=== PATIENT | male | born 1960 | race Caucasian/White ===

== ENCOUNTER 2023-02-28 02:35 | Inpatient (IN) | payer BC, MEDICARE ==
[2023-02-28] MEDS ORDERED: Morphine 4 MG/ML VIAL ONE (05:01)
[2023-02-28] MEDS ORDERED: Ondansetron PF 4 MG/2 ML Vial ONE (05:01)
[2023-02-28 06:18] LABS: #Eosinphils 0.2 thou/uL (0.0-0.7); #Monocytes 0.8 thou/uL (0.11-0.59); #Neutrophils 5.4 thou/uL (1.40-6.50); %Basophils 0.3 % (0.0-1.0); %Eosinophils 2.2 % (0.0-10.0); %Lymphocytes 26.3 % (21.0-51.0); %Monocytes 8.7 % (0.0-10.0); %Neutrophils 62.2 % (42.0-75.0); Hemoglobin 12.4 g/dL (14.0-18.0); Mean Corpuscular HGB CONC 33.5 g/dL (32.0-36.0); Mean Corpuscular Hemoglobin 33.3 pg (27.0-31.0); Mean Corpuscular Volume 99.5 fl (78.0-98.0); Platelet Count 413 10x3/uL (130-400); RBC Distribution Width 12.2 % (11.5-14.5); Red Blood Cell (RBC) Count 3.72 mill/uL (4.70-6.10); White Blood Cell (WBC) Count 8.7 10x3/uL (4.8-10.8)
[2023-02-28 06:36] LABS: ALT (SGPT) 26 U/L (8-55); AST (SGOT) 20 U/L (5-34); Albumin 3.2 g/dL (3.4-4.8); Alkaline Phosphatase 78 U/L (40-110); Anion Gap 14 mmol/L (10-20); BUN (Urea Nitrogen) 14 mg/dL (8.4-25.7); Bilirubin, Total 0.4 mg/dL (0.2-1.2); Calc. Creatinine Clearance 0 mL/min (70-130); Calcium 8.5 mg/dL (7.8-10.44); Carbon Dioxide 25 mmol/L (23-31); Chloride 101 mmol/L (98-107); Estimated GFR 100; Globulin 3.6 g/dL (2.4-3.5); Glucose 151 mg/dL (80-115); Potassium 4.5 mmol/L (3.5-5.1); Protein, Total 6.8 g/dL (5.8-8.1); Sodium 135 mmol/L (136-145)
[2023-02-28] MEDS ORDERED: Ketorolac Tromethamine 30 MG/ML VIAL ONE (07:34)
[2023-02-28] MEDS ORDERED: Iopamidol 370 76% 100 ML VIAL ONE (08:32)
[2023-02-28] MEDS ORDERED: Senokot S 8.6-50 MG TAB PO PRN (09:25)
[2023-02-28] MEDS ORDERED: Ondansetron PF 4 MG/2 ML Vial IVP PRN (09:25)
[2023-02-28] MEDS ORDERED: Dextrose 50% Abboject 50 ML SYRINGE SLOW IVP PRN (09:28)
[2023-02-28] MEDS ORDERED: Glucagon 1 MG/ML KIT IM PRN (09:28)
[2023-02-28] MEDS ORDERED: Dextrose 5% in Water 1,000 ML IV PRN (09:28)
[2023-02-28] MEDS ORDERED: Piperacillin/Tazobactam 3.375 GM in Sodium Chloride 0.9% 100 ML IVPB SCH ×3 (09:30→14:00)
[2023-02-28] MEDS ORDERED: Piperacillin/Tazobactam 3.375 GM VIAL ONE (12:35)
[2023-02-28] MEDS ORDERED: Sodium Chloride 0.9% 100 ML ONE (12:35)
[2023-02-28] MEDS ORDERED: Acetaminophen 325 MG TAB ONE (12:48)
[2023-02-28] MEDS: Sodium Chloride 0.9% 1,000 ML IV SCH (12:54)
[2023-02-28] MEDS: Acetaminophen 325 MG TAB PO PRN ×3 (12:55→20:11)
[2023-02-28 12:59] VITALS: BMI 28.5
[2023-02-28] MEDS: Piperacillin/Tazobactam 3.375 GM in Sodium Chloride 0.9% 100 ML IVPB SCH (16:48)
[2023-02-28] MEDS: Insulin Regular 300 UNITS/3 ML VIAL SC PRN (16:51)
[2023-02-28 19:43] LABS: Hemoglobin A1c 11.6 % (4.0-6.0)
[2023-02-28] MEDS: Chlorhexidine Gluconate 15 ML UDCUP SSP SCH (20:08)
[2023-03-01] MEDS: Piperacillin/Tazobactam 3.375 GM in Sodium Chloride 0.9% 100 ML IVPB SCH ×3 (00:12→16:06)
[2023-03-01] MEDS: Acetaminophen 325 MG TAB PO PRN ×4 (00:12→19:24)
[2023-03-01] MEDS: Sodium Chloride 0.9% 1,000 ML IV SCH (00:16)
[2023-03-01 04:38] LABS: #Eosinphils 0.3 thou/uL (0.0-0.7); #Monocytes 0.8 thou/uL (0.11-0.59); #Neutrophils 3.1 thou/uL (1.40-6.50); %Basophils 0.4 % (0.0-1.0); %Eosinophils 3.9 % (0.0-10.0); %Lymphocytes 39.2 % (21.0-51.0); %Neutrophils 45.2 % (42.0-75.0); Mean Corpuscular HGB CONC 34.3 g/dL (32.0-36.0); Mean Corpuscular Hemoglobin 33.3 pg (27.0-31.0); Mean Corpuscular Volume 97.2 fl (78.0-98.0); Mean Platelet Volume 9.4 fL (7.4-10.4); Platelet Count 395 10x3/uL (130-400); RBC Distribution Width 11.9 % (11.5-14.5); White Blood Cell (WBC) Count 6.9 10x3/uL (4.8-10.8)
[2023-03-01 05:07] LABS: Anion Gap 9 mmol/L (10-20); BUN (Urea Nitrogen) 8 mg/dL (8.4-25.7); Calc. Creatinine Clearance 136 mL/min (70-130); Calcium 8.7 mg/dL (7.8-10.44); Carbon Dioxide 27 mmol/L (23-31); Chloride 103 mmol/L (98-107); Estimated GFR 102; Glucose 133 mg/dL (80-115); Potassium 4.2 mmol/L (3.5-5.1); Sodium 135 mmol/L (136-145)
[2023-03-01] MEDS: Chlorhexidine Gluconate 15 ML UDCUP SSP SCH ×2 (08:12→22:11)
[2023-03-01] MEDS: Morphine 2 MG/ML VIAL SLOW IVP PRN ×2 (11:58→12:47)
[2023-03-01] MEDS: Morphine 4 MG/ML VIAL SLOW IVP PRN ×2 (14:42→19:24)
[2023-03-01] MEDS: metFORMIN XR 500 MG ER.TAB PO SCH (16:36)
[2023-03-01] MEDS: Insulin Glargine 30 UNITS/0.3 ML VIAL SC SCH (22:11)
[2023-03-01] MEDS: Insulin Regular 300 UNITS/3 ML VIAL SC PRN (22:18)
[2023-03-02] MEDS: Piperacillin/Tazobactam 3.375 GM in Sodium Chloride 0.9% 100 ML IVPB SCH ×3 (00:19→17:44)
[2023-03-02] MEDS: Morphine 4 MG/ML VIAL SLOW IVP PRN ×2 (00:22→13:48)
[2023-03-02 05:40] LABS: #Eosinphils 0.3 thou/uL (0.0-0.7); #Monocytes 0.8 thou/uL (0.11-0.59); #Neutrophils 3.2 thou/uL (1.40-6.50); %Basophils 0.6 % (0.0-1.0); %Eosinophils 3.6 % (0.0-10.0); %Lymphocytes 37.4 % (21.0-51.0); %Neutrophils 46.1 % (42.0-75.0); Hematocrit 37.2 % (42.0-52.0); Hemoglobin 12.7 g/dL (14.0-18.0); Mean Corpuscular HGB CONC 34.1 g/dL (32.0-36.0); Mean Corpuscular Hemoglobin 33.5 pg (27.0-31.0); Mean Corpuscular Volume 98.2 fl (78.0-98.0); Mean Platelet Volume 9.4 fL (7.4-10.4); Platelet Count 383 10x3/uL (130-400); RBC Distribution Width 11.9 % (11.5-14.5); Red Blood Cell (RBC) Count 3.79 mill/uL (4.70-6.10)
[2023-03-02 06:09] LABS: Anion Gap 12 mmol/L (10-20); BUN (Urea Nitrogen) 7 mg/dL (8.4-25.7); Calc. Creatinine Clearance 131 mL/min (70-130); Calcium 9.1 mg/dL (7.8-10.44); Carbon Dioxide 26 mmol/L (23-31); Chloride 101 mmol/L (98-107); Estimated GFR 101; Glucose 163 mg/dL (80-115); Potassium 4.3 mmol/L (3.5-5.1); Sodium 135 mmol/L (136-145)
[2023-03-02] MEDS: Insulin Glargine 30 UNITS/0.3 ML VIAL SC SCH (08:00)
[2023-03-02] MEDS ORDERED: Insulin Glargine 30 UNITS/0.3 ML VIAL SC SCH (09:00)
[2023-03-02] MEDS: Multivitamin W/ Minerals 1 TAB PO SCH (09:53)
[2023-03-02] MEDS: Lisinopril 5 MG TAB PO SCH (09:53)
[2023-03-02] MEDS: Atorvastatin Calcium 10 MG TAB PO SCH (09:53)
[2023-03-02] MEDS: Aspirin 81 mg Enteric Coated Tablet PO SCH (09:53)
[2023-03-02] MEDS: glipiZIDE XL 2.5 mg ER.TAB PO SCH (09:54)
[2023-03-02] MEDS: metFORMIN XR 500 MG ER.TAB PO SCH ×2 (09:54→17:44)
[2023-03-02] MEDS: Chlorhexidine Gluconate 15 ML UDCUP SSP SCH ×2 (09:54→21:53)
[2023-03-02] MEDS: Insulin Regular 300 UNITS/3 ML VIAL SC PRN (13:49)
[2023-03-02] MEDS: Acetaminophen 325 MG TAB PO PRN ×2 (15:44→21:53)
[2023-03-03] MEDS: Piperacillin/Tazobactam 3.375 GM in Sodium Chloride 0.9% 100 ML IVPB SCH ×3 (00:31→17:25)
[2023-03-03] MEDS: Acetaminophen 325 MG TAB PO PRN ×5 (00:58→23:09)
[2023-03-03] MEDS: Morphine 4 MG/ML VIAL SLOW IVP PRN (04:17)
[2023-03-03] MEDS: Lisinopril 5 MG TAB PO SCH (08:27)
[2023-03-03] MEDS: Multivitamin W/ Minerals 1 TAB PO SCH (08:28)
[2023-03-03] MEDS: Atorvastatin Calcium 10 MG TAB PO SCH (08:28)
[2023-03-03] MEDS: Aspirin 81 mg Enteric Coated Tablet PO SCH (08:29)
[2023-03-03] MEDS: metFORMIN XR 500 MG ER.TAB PO SCH ×2 (08:29→17:25)
[2023-03-03] MEDS: glipiZIDE XL 2.5 mg ER.TAB PO SCH (08:29)
[2023-03-03] MEDS: Insulin Glargine 30 UNITS/0.3 ML VIAL SC SCH ×2 (08:29→21:19)
[2023-03-03] MEDS: Chlorhexidine Gluconate 15 ML UDCUP SSP SCH ×2 (08:29→21:19)
[2023-03-03] MEDS ORDERED: Oxymetazoline HCl 0.05% (30 ML BOT) ONE (11:20)
[2023-03-03] MEDS ORDERED: Midazolam HCl 2 mg/2 ml Vial ONE (12:45)
[2023-03-03] MEDS ORDERED: fentaNYL PF 100 MCG/2 ML SYRINGE ONE (12:45)
[2023-03-03] MEDS ORDERED: Lidocaine 1% (PF) 30 ML VIAL ONE (12:51)
[2023-03-03] MEDS ORDERED: SUGAMMADEX SODIUM 200 MG/2 ML VIAL ONE (13:01)
[2023-03-03] MEDS ORDERED: Ondansetron PF 4 MG/2 ML Vial ONE (13:11)
[2023-03-03] MEDS ORDERED: Rocuronium Bromide 10 MG/ML (10ML VIAL) ONE (13:11)
[2023-03-03] MEDS ORDERED: Lidocaine 1% PF 5 ML VIAL ONE (13:11)
[2023-03-03] MEDS ORDERED: PROPOFOL 200 MG/20 ML VIAL ONE (13:11)
[2023-03-03] MEDS ORDERED: fentaNYL 50 mcg/mL 1 mL Vial ONE ×4 (13:50→14:28)
[2023-03-03] MEDS ORDERED: HYDROmorphone 0.5 MG/0.5 ML SYRINGE ONE ×2 (14:21→14:36)
[2023-03-03] MEDS ORDERED: HYDROmorphone 2 MG/ML VIAL SLOW IVP PRN (15:00)
[2023-03-03] MEDS ORDERED: Ondansetron HCl/PF 4 MG/2 ML Vial IVP PRN (15:00)
[2023-03-03] MEDS ORDERED: Promethazine HCl 25 MG/ML VIAL IM/IV PRN (15:00)
[2023-03-04] MEDS: Piperacillin/Tazobactam 3.375 GM in Sodium Chloride 0.9% 100 ML IVPB SCH ×2 (02:06→07:57)
[2023-03-04] MEDS: Acetaminophen 325 MG TAB PO PRN ×2 (04:49→09:03)
[2023-03-04] MEDS: Multivitamin W/ Minerals 1 TAB PO SCH (07:57)
[2023-03-04] MEDS: glipiZIDE XL 2.5 mg ER.TAB PO SCH (07:57)
[2023-03-04] MEDS: Lisinopril 5 MG TAB PO SCH (07:57)
[2023-03-04] MEDS: Atorvastatin Calcium 10 MG TAB PO SCH (07:57)
[2023-03-04] MEDS: metFORMIN XR 500 MG ER.TAB PO SCH (07:57)
[2023-03-04] MEDS: Insulin Glargine 30 UNITS/0.3 ML VIAL SC SCH (07:58)
[2023-03-04] MEDS: Chlorhexidine Gluconate 15 ML UDCUP SSP SCH (07:58)
[2023-03-04] MEDS: Aspirin 81 mg Enteric Coated Tablet PO SCH (07:58)
[2023-03-04 12:04] VITALS: BP 110/72; TEMP 98.1
== END 2023-03-04 12:00 | disposition home or self-care (01) | DRG 145 ==
LOC: ERS 02:35 → ERHOLD 09:20 → T4-B 15:12 → OBSVTOIN 03-01 09:20
PROVIDERS: ADMIT Hospitalist; ATTEND Family Medicine
PROC: 09TV8ZZ Resection of Left Ethmoid Sinus, Via Natural or Artificial Opening Endoscopic (ICD-10-PCS; principal; 2023-03-03)
PROC: 09TL8ZZ Resection of Nasal Turbinate, Via Natural or Artificial Opening Endoscopic (ICD-10-PCS; 2023-03-03)
PROC: 09TU8ZZ Resection of Right Ethmoid Sinus, Via Natural or Artificial Opening Endoscopic (ICD-10-PCS; 2023-03-03)
PROC: 099R8ZZ Drainage of Left Maxillary Sinus, Via Natural or Artificial Opening Endoscopic (ICD-10-PCS; 2023-03-03)
PROC: 099Q8ZZ Drainage of Right Maxillary Sinus, Via Natural or Artificial Opening Endoscopic (ICD-10-PCS; 2023-03-03)
DX: K04.6 Periapical abscess with sinus (principal); J32.0 Chronic maxillary sinusitis; K05.30 Chronic periodontitis, unspecified; E78.5 Hyperlipidemia, unspecified; E11.9 Type 2 diabetes mellitus without complications; I10 Essential (primary) hypertension; F17.220 Nicotine dependence, chewing tobacco, uncomplicated; R09.81 Nasal congestion; J34.3 Hypertrophy of nasal turbinates; J34.89 Other specified disorders of nose and nasal sinuses; Z79.82 Long term (current) use of aspirin; Z79.84 Long term (current) use of oral hypoglycemic drugs; Z79.899 Other long term (current) drug therapy; Z90.49 Acquired absence of other specified parts of digestive tract; Z98.84 Bariatric surgery status
CPT/HCPCS: 36415; 36416; 70487; 80048; 80053; 83036; 83605; 85025; 86140; 87040; 87070; 87102; 87116; 87205; 87206; 96374; 96375; J1170; J1815; J1885; J2001; J2250; J2270; J2272; J2405; J2543; J3010; J3490; J7050; Q9967

== ENCOUNTER 2023-03-09 14:05 | Inpatient (IN) | payer BC, MEDICARE ==
[~2023-03-09 14:05] MED LIST: Iopamidol-370 76% 500 ML MDV (1 ML CHARGE) ONE
[2023-03-09 15:19] LABS: #Eosinphils 0.2 thou/uL (0.0-0.7); #Monocytes 0.6 thou/uL (0.11-0.59); #Neutrophils 4.1 thou/uL (1.40-6.50); %Basophils 0.4 % (0.0-1.0); %Eosinophils 2.6 % (0.0-10.0); %Lymphocytes 28.6 % (21.0-51.0); %Neutrophils 59.3 % (42.0-75.0); Hematocrit 36.5 % (42.0-52.0); Hemoglobin 12.5 g/dL (14.0-18.0); Mean Corpuscular HGB CONC 34.2 g/dL (32.0-36.0); Mean Corpuscular Hemoglobin 33.6 pg (27.0-31.0); Mean Corpuscular Volume 98.1 fl (78.0-98.0); Mean Platelet Volume 9.2 fL (7.4-10.4); Platelet Count 310 10x3/uL (130-400); RBC Distribution Width 12.6 % (11.5-14.5); Red Blood Cell (RBC) Count 3.72 mill/uL (4.70-6.10); White Blood Cell (WBC) Count 6.9 10x3/uL (4.8-10.8)
[2023-03-09 16:28] LABS: Chloride 101 mmol/L (98-107); Potassium 4.1 mmol/L (3.5-5.1)
[2023-03-09 16:29] LABS: Calcium 9.7 mg/dL (7.8-10.44); Sodium 137 mmol/L (136-145)
[2023-03-09 16:31] LABS: Glucose 153 mg/dL (80-115)
[2023-03-09 16:32] LABS: Anion Gap 15 mmol/L (10-20); Carbon Dioxide 25 mmol/L (23-31)
[2023-03-09 16:34] LABS: Calc. Creatinine Clearance 0 mL/min (70-130); Estimated GFR 101
[2023-03-09 16:35] LABS: BUN (Urea Nitrogen) 11 mg/dL (8.4-25.7)
[2023-03-09] MEDS ORDERED: Acetaminophen 500 MG TAB ONE (16:54)
[2023-03-09] MEDS ORDERED: fentaNYL PF 100 MCG/2 ML SYRINGE ONE (19:43)
[2023-03-09] MEDS ORDERED: Midazolam HCl 2 mg/2 ml Vial ONE (19:43)
[2023-03-09] MEDS ORDERED: Oxymetazoline HCl 0.05% (30 ML BOT) ONE (19:44)
[2023-03-09] MEDS ORDERED: Chlorhexidine Gluconate 15 ML UDCUP SSP ONE (19:56)
[2023-03-09] MEDS ORDERED: EPINEPHrine 1 MG/ML VIAL ONE (20:06)
[2023-03-09] MEDS ORDERED: Lidocaine 1% (PF) 30 ML VIAL ONE (20:07)
[2023-03-09] MEDS ORDERED: Bacitracin Zinc Ointment 30 gm TUBE ONE (20:07)
[2023-03-09] MEDS ORDERED: PROPOFOL 200 MG/20 ML VIAL ONE (20:20)
[2023-03-09] MEDS ORDERED: Ondansetron PF 4 MG/2 ML Vial ONE (20:20)
[2023-03-09] MEDS ORDERED: Rocuronium Bromide 10 MG/ML (10ML VIAL) ONE (20:20)
[2023-03-09] MEDS ORDERED: Metoclopramide HCl 10 MG/2 ML VIAL ONE (20:20)
[2023-03-09] MEDS ORDERED: Lidocaine 1% PF 5 ML VIAL ONE (20:20)
[2023-03-09] MEDS ORDERED: SUGAMMADEX SODIUM 200 MG/2 ML VIAL ONE (20:49)
[2023-03-09] MEDS ORDERED: fentaNYL 50 mcg/mL 1 mL Vial ONE (21:51)
[2023-03-09] MEDS ORDERED: HYDROmorphone 0.5 MG/0.5 ML SYRINGE ONE ×2 (22:13→22:36)
[2023-03-09] MEDS ORDERED: Morphine 2 MG/ML VIAL SLOW IVP PRN (22:23)
[2023-03-09] MEDS ORDERED: HYDROcodone/Acetaminophen 5/325 mg Tablet PO PRN (22:24)
[2023-03-09] MEDS ORDERED: Ondansetron ODT 4 MG TAB PO PRN (22:36)
[2023-03-09] MEDS ORDERED: Acetaminophen 325 MG TAB PO PRN (22:36)
[2023-03-09] MEDS ORDERED: Acetaminophen 650 MG Suppository PR PRN (22:36)
[2023-03-09] MEDS ORDERED: Ondansetron PF 4 MG/2 ML Vial IVP PRN (22:36)
[2023-03-09] MEDS ORDERED: Dextrose 50% Abboject 50 ML SYRINGE SLOW IVP PRN (22:40)
[2023-03-09] MEDS ORDERED: Glucagon 1 MG/ML KIT IM PRN (22:40)
[2023-03-09] MEDS ORDERED: Dextrose 5% in Water 1,000 ML IV PRN (22:40)
[2023-03-09] MEDS ORDERED: Sodium Chloride 0.9% 1,000 ML IV SCH (22:45)
[2023-03-09] MEDS ORDERED: Electrolyte Replacement Protocol 1 EACH FS PRN (22:45)
[2023-03-09] MEDS: Ibuprofen 200 MG TAB PO SCH (23:27)
[2023-03-10 02:42] VITALS: BMI 28.3
[2023-03-10] MEDS: Ibuprofen 200 MG TAB PO SCH ×4 (05:56→22:17)
[2023-03-10] MEDS: HumaLOG 300 UNITS/3 ML VIAL SC PRN ×2 (05:59→13:31)
[2023-03-10] MEDS: HYDROcodone/Acetaminophen 5/325 mg Tablet PO PRN ×2 (06:53→12:47)
[2023-03-10 07:03] LABS: #Eosinphils 0.3 thou/uL (0.0-0.7); #Monocytes 0.7 thou/uL (0.11-0.59); #Neutrophils 3.8 thou/uL (1.40-6.50); %Basophils 0.4 % (0.0-1.0); %Monocytes 9.9 % (0.0-10.0); %Neutrophils 55.4 % (42.0-75.0); Hematocrit 32.9 % (42.0-52.0); Hemoglobin 11.1 g/dL (14.0-18.0); Mean Corpuscular HGB CONC 33.7 g/dL (32.0-36.0); Mean Corpuscular Volume 97.9 fl (78.0-98.0); Mean Platelet Volume 9.2 fL (7.4-10.4); Platelet Count 268 10x3/uL (130-400); RBC Distribution Width 12.5 % (11.5-14.5); Red Blood Cell (RBC) Count 3.36 mill/uL (4.70-6.10); White Blood Cell (WBC) Count 6.8 10x3/uL (4.8-10.8)
[2023-03-10 08:08] LABS: Calcium 8.7 mg/dL (7.8-10.44); Chloride 100 mmol/L (98-107); Glucose 250 mg/dL (80-115); Potassium 4.1 mmol/L (3.5-5.1); Sodium 133 mmol/L (136-145)
[2023-03-10 08:10] LABS: Anion Gap 13 mmol/L (10-20); BUN (Urea Nitrogen) 8 mg/dL (8.4-25.7); Calc. Creatinine Clearance 130 mL/min (70-130); Carbon Dioxide 24 mmol/L (23-31); Estimated GFR 101
[2023-03-10] MEDS: Chlorhexidine Gluconate 15 ML UDCUP SSP SCH ×3 (09:15→22:18)
[2023-03-10] MEDS: Lisinopril 5 MG TAB PO SCH (09:15)
[2023-03-10] MEDS: Atorvastatin Calcium 10 MG TAB PO SCH (09:15)
[2023-03-10] MEDS: Nicotine 14 MG PATCH TD SCH (09:15)
[2023-03-10] MEDS: Aspirin 81 mg Enteric Coated Tablet PO SCH (09:15)
[2023-03-10] MEDS ORDERED: Piperacillin/Tazobactam 3.375 GM in Sodium Chloride 0.9% 100 ML IVPB SCH (13:00)
[2023-03-10] MEDS: Micafungin 100 MG in Sodium Chloride 0.9% 100 ML IVPB SCH (15:16)
[2023-03-10] MEDS: Piperacillin/Tazobactam 3.375 GM in Sodium Chloride 0.9% 100 ML IVPB SCH ×2 (17:47→18:56)
[2023-03-10] MEDS ORDERED: VANCOMYCIN IVPB PRN (18:21)
[2023-03-10] MEDS ORDERED: [UNRECOGNIZED DRUG - OTHER] IVPB PRN (18:21)
[2023-03-10] MEDS ORDERED: Vancomycin (BATCH) 2 GM in Premix 1 BAG IVPB SCH (19:15)
[2023-03-10] MEDS ORDERED: Vancomycin 1 GM in Premix 1 BAG IVPB SCH (21:00)
[2023-03-10] MEDS: Cefepime 2 GM in Sodium Chloride 0.9% 100 ML IVPB SCH (22:16)
[2023-03-10] MEDS: metroNIDAZOLE 500 MG TAB PO SCH (22:18)
[2023-03-11] MEDS: HYDROcodone/Acetaminophen 5/325 mg Tablet PO PRN ×2 (02:40→17:09)
[2023-03-11] MEDS: Vancomycin (BATCH) 1.5 GM in Premix 1 BAG IVPB SCH ×2 (04:39→17:07)
[2023-03-11] MEDS: Cefepime 2 GM in Sodium Chloride 0.9% 100 ML IVPB SCH ×3 (06:29→20:31)
[2023-03-11] MEDS: Ibuprofen 200 MG TAB PO SCH ×4 (06:29→23:00)
[2023-03-11] MEDS: Nicotine 14 MG PATCH TD SCH (09:02)
[2023-03-11] MEDS: Lisinopril 5 MG TAB PO SCH (09:02)
[2023-03-11] MEDS: Chlorhexidine Gluconate 15 ML UDCUP SSP SCH ×3 (09:02→20:31)
[2023-03-11] MEDS: Aspirin 81 mg Enteric Coated Tablet PO SCH (09:02)
[2023-03-11] MEDS: Atorvastatin Calcium 10 MG TAB PO SCH (09:02)
[2023-03-11] MEDS: metroNIDAZOLE 500 MG TAB PO SCH ×3 (09:02→20:31)
[2023-03-11] MEDS: HumaLOG 300 UNITS/3 ML VIAL SC PRN (12:28)
[2023-03-11] MEDS: Micafungin 100 MG in Sodium Chloride 0.9% 100 ML IVPB SCH (14:24)
[2023-03-11] MEDS: Polyethylene Glycol 3350 17 GM Packet PO PRN (20:31)
[2023-03-11] MEDS ORDERED: Melatonin 3 MG TAB PO PRN (20:53)
[2023-03-11] MEDS: Melatonin 3 MG TAB PO PRN (23:00)
[2023-03-12] MEDS: Ibuprofen 200 MG TAB PO SCH ×4 (04:55→23:07)
[2023-03-12] MEDS: Cefepime 2 GM in Sodium Chloride 0.9% 100 ML IVPB SCH ×3 (04:56→21:04)
[2023-03-12 05:18] LABS: Hematocrit 30.4 % (42.0-52.0); Hemoglobin 10.6 g/dL (14.0-18.0); Mean Corpuscular HGB CONC 34.9 g/dL (32.0-36.0); Mean Corpuscular Hemoglobin 34.2 pg (27.0-31.0); Mean Corpuscular Volume 98.1 fl (78.0-98.0); Platelet Count 232 10x3/uL (130-400); RBC Distribution Width 12.4 % (11.5-14.5); White Blood Cell (WBC) Count 4.6 10x3/uL (4.8-10.8)
[2023-03-12 05:21] LABS: Delete Auto Diff?? YES; Manual Diff?? YES
[2023-03-12 05:48] LABS: Anion Gap 11 mmol/L (10-20); BUN (Urea Nitrogen) 10 mg/dL (8.4-25.7); Calc. Creatinine Clearance 145 mL/min (70-130); Calcium 8.8 mg/dL (7.8-10.44); Carbon Dioxide 27 mmol/L (23-31); Chloride 102 mmol/L (98-107); Estimated GFR 104; Glucose 152 mg/dL (80-115); Potassium 4.1 mmol/L (3.5-5.1); Sodium 136 mmol/L (136-145)
[2023-03-12 05:50] LABS: Band 2 % (5-11); CellaVision Operator ID LAB.CLH1; Eosinophils 3 % (0-10); Hypochromia SLIGHT = 6-15 cells HPF (0-5); Lymphocytes 36 % (21-51); Monocytes 11 % (0-10); Neutrophil 49 % (42-75); Platelet Adequacy Comment Platelets Normal; Polychromasia SLIGHT = 2-3 cells HPF (0-2); Total Cell Count 101
[2023-03-12 06:26] LABS: Vancomycin, Trough 12.6 ug/mL
[2023-03-12] MEDS: Vancomycin (BATCH) 1.5 GM in Premix 1 BAG IVPB SCH (06:38)
[2023-03-12] MEDS: Aspirin 81 mg Enteric Coated Tablet PO SCH (09:22)
[2023-03-12] MEDS: Chlorhexidine Gluconate 15 ML UDCUP SSP SCH ×3 (09:22→21:04)
[2023-03-12] MEDS: metroNIDAZOLE 500 MG TAB PO SCH ×3 (09:22→21:04)
[2023-03-12] MEDS: Atorvastatin Calcium 10 MG TAB PO SCH (09:22)
[2023-03-12] MEDS: Nicotine 14 MG PATCH TD SCH (09:22)
[2023-03-12] MEDS: Insulin Glargine 30 UNITS/0.3 ML VIAL SC SCH (09:23)
[2023-03-12] MEDS: Lisinopril 5 MG TAB PO SCH (09:32)
[2023-03-12] MEDS: HumaLOG 300 UNITS/3 ML VIAL SC PRN ×2 (12:53→23:10)
[2023-03-12] MEDS: Micafungin 100 MG in Sodium Chloride 0.9% 100 ML IVPB SCH (14:38)
[2023-03-12] MEDS: Vancomycin (BATCH) 1.25 GM in Premix 1 BAG IVPB SCH ×2 (15:52→23:07)
[2023-03-12] MEDS: Polyethylene Glycol 3350 17 GM Packet PO PRN (23:07)
[2023-03-13] MEDS: Cefepime 2 GM in Sodium Chloride 0.9% 100 ML IVPB SCH ×3 (05:11→21:03)
[2023-03-13] MEDS: Ibuprofen 200 MG TAB PO SCH ×4 (05:11→23:22)
[2023-03-13 05:30] LABS: #Eosinphils 0.4 thou/uL (0.0-0.7); #Monocytes 0.7 thou/uL (0.11-0.59); #Neutrophils 2.3 thou/uL (1.40-6.50); %Basophils 0.7 % (0.0-1.0); %Lymphocytes 40.7 % (21.0-51.0); %Monocytes 11.6 % (0.0-10.0); %Neutrophils 39.6 % (42.0-75.0); Hematocrit 28.9 % (42.0-52.0); Mean Corpuscular HGB CONC 34.6 g/dL (32.0-36.0); Mean Corpuscular Hemoglobin 33.6 pg (27.0-31.0); Mean Platelet Volume 9.1 fL (7.4-10.4); Platelet Count 265 10x3/uL (130-400); RBC Distribution Width 12.5 % (11.5-14.5); Red Blood Cell (RBC) Count 2.98 mill/uL (4.70-6.10); White Blood Cell (WBC) Count 5.7 10x3/uL (4.8-10.8)
[2023-03-13 05:55] LABS: Anion Gap 10 mmol/L (10-20); BUN (Urea Nitrogen) 14 mg/dL (8.4-25.7); Calc. Creatinine Clearance 150 mL/min (70-130); Calcium 9.1 mg/dL (7.8-10.44); Carbon Dioxide 27 mmol/L (23-31); Chloride 103 mmol/L (98-107); Estimated GFR 105; Glucose 130 mg/dL (80-115); Sodium 136 mmol/L (136-145)
[2023-03-13 06:02] LABS: Vancomycin, Trough 22.4 ug/mL
[2023-03-13] MEDS: Vancomycin 1 GM in Premix 1 BAG IVPB SCH ×3 (09:22→23:25)
[2023-03-13] MEDS: Nicotine 14 MG PATCH TD SCH (09:23)
[2023-03-13] MEDS: Aspirin 81 mg Enteric Coated Tablet PO SCH (09:23)
[2023-03-13] MEDS: metroNIDAZOLE 500 MG TAB PO SCH ×3 (09:23→21:04)
[2023-03-13] MEDS: Lisinopril 5 MG TAB PO SCH (09:23)
[2023-03-13] MEDS: Atorvastatin Calcium 10 MG TAB PO SCH (09:23)
[2023-03-13] MEDS: Insulin Glargine 30 UNITS/0.3 ML VIAL SC SCH (09:24)
[2023-03-13] MEDS: Chlorhexidine Gluconate 15 ML UDCUP SSP SCH ×3 (09:24→21:04)
[2023-03-13 11:02] LABS: Reference Lab Name LABCORP
[2023-03-13] MEDS: Vancomycin (BATCH) 1.25 GM in Premix 1 BAG IVPB SCH (11:19)
[2023-03-13] MEDS: Micafungin 100 MG in Sodium Chloride 0.9% 100 ML IVPB SCH (14:12)
[2023-03-13] MEDS: HumaLOG 300 UNITS/3 ML VIAL SC PRN (16:32)
[2023-03-13] MEDS: Polyethylene Glycol 3350 17 GM Packet PO PRN (16:38)
[2023-03-13] MEDS ORDERED: Piperacillin/Tazobactam 3.375 GM in Sodium Chloride 0.9% 100 ML IVPB SCH (22:45)
[2023-03-14] MEDS: HumaLOG 300 UNITS/3 ML VIAL SC PRN ×3 (06:03→17:48)
[2023-03-14] MEDS: Ibuprofen 200 MG TAB PO SCH ×4 (06:03→23:24)
[2023-03-14] MEDS: Piperacillin/Tazobactam 3.375 GM in Sodium Chloride 0.9% 100 ML IVPB SCH ×3 (06:04→21:16)
[2023-03-14 07:25] LABS: Hemoglobin 10.2 g/dL (14.0-18.0); Mean Corpuscular Hemoglobin 33.4 pg (27.0-31.0); Mean Corpuscular Volume 98.4 fl (78.0-98.0); Mean Platelet Volume 9.1 fL (7.4-10.4); Platelet Count 284 10x3/uL (130-400); RBC Distribution Width 12.5 % (11.5-14.5); Red Blood Cell (RBC) Count 3.05 mill/uL (4.70-6.10); White Blood Cell (WBC) Count 5.3 10x3/uL (4.8-10.8)
[2023-03-14 07:28] LABS: Delete Auto Diff?? YES; Manual Diff?? YES
[2023-03-14 07:45] LABS: Vancomycin, Trough 21.1 ug/mL
[2023-03-14 07:49] LABS: Anion Gap 10 mmol/L (10-20); BUN (Urea Nitrogen) 11 mg/dL (8.4-25.7); Calc. Creatinine Clearance 130 mL/min (70-130); Calcium 9.2 mg/dL (7.8-10.44); Carbon Dioxide 29 mmol/L (23-31); Chloride 102 mmol/L (98-107); Estimated GFR 101; Glucose 154 mg/dL (80-115); Potassium 4.1 mmol/L (3.5-5.1); Sodium 137 mmol/L (136-145)
[2023-03-14 07:50] LABS: CellaVision Operator ID LAB.NR; Eosinophils 6 % (0-10); Lymphocytes 35 % (21-51); Macrocytosis SLIGHT = 6-15 cells HPF (0-5); Monocytes 9 % (0-10); Neutrophil 50 % (42-75); Platelet Adequacy Comment Platelets Normal; Polychromasia SLIGHT = 2-3 cells HPF (0-2); Total Cell Count 101
[2023-03-14] MEDS ORDERED: Vancomycin HCl 750 MG in Sodium Chloride 0.9% 250 ML 250 ML IVPB SCH ×2 (08:30→16:00)
[2023-03-14] MEDS: Insulin Glargine 30 UNITS/0.3 ML VIAL SC SCH (10:08)
[2023-03-14] MEDS: Chlorhexidine Gluconate 15 ML UDCUP SSP SCH ×3 (10:08→21:17)
[2023-03-14] MEDS: Aspirin 81 mg Enteric Coated Tablet PO SCH (10:12)
[2023-03-14] MEDS: Lisinopril 5 MG TAB PO SCH (10:12)
[2023-03-14] MEDS: Nicotine 14 MG PATCH TD SCH (10:12)
[2023-03-14] MEDS: Atorvastatin Calcium 10 MG TAB PO SCH (10:12)
[2023-03-14] MEDS: Vancomycin 1 GM in Premix 1 BAG IVPB SCH (10:39)
[2023-03-14] MEDS: Micafungin 100 MG in Sodium Chloride 0.9% 100 ML IVPB SCH (14:38)
[2023-03-15] MEDS: Ibuprofen 200 MG TAB PO SCH ×4 (05:31→23:52)
[2023-03-15] MEDS: Piperacillin/Tazobactam 3.375 GM in Sodium Chloride 0.9% 100 ML IVPB SCH ×2 (05:31→14:01)
[2023-03-15 06:36] LABS: #Basophils 0.1 thou/uL (0.0-0.2); #Eosinphils 0.4 thou/uL (0.0-0.7); #Monocytes 0.8 thou/uL (0.11-0.59); #Neutrophils 2.9 thou/uL (1.40-6.50); %Eosinophils 5.6 % (0.0-10.0); %Lymphocytes 41.2 % (21.0-51.0); %Monocytes 11.1 % (0.0-10.0); %Neutrophils 40.7 % (42.0-75.0); Hematocrit 28.3 % (42.0-52.0); Hemoglobin 9.7 g/dL (14.0-18.0); Mean Corpuscular HGB CONC 34.3 g/dL (32.0-36.0); Mean Corpuscular Hemoglobin 33.3 pg (27.0-31.0); Mean Corpuscular Volume 97.3 fl (78.0-98.0); Mean Platelet Volume 9.3 fL (7.4-10.4); Platelet Count 327 10x3/uL (130-400); RBC Distribution Width 12.6 % (11.5-14.5); Red Blood Cell (RBC) Count 2.91 mill/uL (4.70-6.10); White Blood Cell (WBC) Count 7.1 10x3/uL (4.8-10.8)
[2023-03-15 07:12] LABS: Anion Gap 11 mmol/L (10-20); BUN (Urea Nitrogen) 14 mg/dL (8.4-25.7); Calc. Creatinine Clearance 145 mL/min (70-130); Calcium 9.2 mg/dL (7.8-10.44); Carbon Dioxide 27 mmol/L (23-31); Chloride 102 mmol/L (98-107); Estimated GFR 104; Glucose 136 mg/dL (80-115); Potassium 4.1 mmol/L (3.5-5.1); Sodium 136 mmol/L (136-145)
[2023-03-15] MEDS: Nicotine 14 MG PATCH TD SCH (08:33)
[2023-03-15] MEDS: Insulin Glargine 30 UNITS/0.3 ML VIAL SC SCH (08:34)
[2023-03-15] MEDS: Aspirin 81 mg Enteric Coated Tablet PO SCH (08:34)
[2023-03-15] MEDS: Atorvastatin Calcium 10 MG TAB PO SCH (08:34)
[2023-03-15] MEDS: Chlorhexidine Gluconate 15 ML UDCUP SSP SCH ×3 (08:34→20:54)
[2023-03-15] MEDS: Lisinopril 5 MG TAB PO SCH (08:34)
[2023-03-15] MEDS: Polyethylene Glycol 3350 17 GM Packet PO PRN (08:50)
[2023-03-15] MEDS: HumaLOG 300 UNITS/3 ML VIAL SC PRN ×2 (12:35→17:58)
[2023-03-15] MEDS: Micafungin 100 MG in Sodium Chloride 0.9% 100 ML IVPB SCH (14:00)
[2023-03-15] MEDS ORDERED: Meropenem 2 GM in Sodium Chloride 0.9% 100 ML IVPB SCH (16:43)
[2023-03-15] MEDS ORDERED: Meropenem 1 GM in Sodium Chloride 0.9% 100 ML IVPB SCH (17:00)
[2023-03-16] MEDS: Meropenem 1 GM in Sodium Chloride 0.9% 100 ML IVPB SCH ×3 (03:39→22:01)
[2023-03-16 04:04] LABS: #Basophils 0.1 thou/uL (0.0-0.2); #Eosinphils 0.4 thou/uL (0.0-0.7); #Monocytes 0.7 thou/uL (0.11-0.59); #Neutrophils 2.7 thou/uL (1.40-6.50); %Basophils 0.7 % (0.0-1.0); %Eosinophils 5.8 % (0.0-10.0); %Lymphocytes 42.2 % (21.0-51.0); %Monocytes 10.8 % (0.0-10.0); %Neutrophils 40.1 % (42.0-75.0); Hematocrit 29.5 % (42.0-52.0); Hemoglobin 10.2 g/dL (14.0-18.0); Mean Corpuscular HGB CONC 34.6 g/dL (32.0-36.0); Mean Corpuscular Hemoglobin 33.8 pg (27.0-31.0); Mean Corpuscular Volume 97.7 fl (78.0-98.0); Platelet Count 297 10x3/uL (130-400); RBC Distribution Width 12.9 % (11.5-14.5); Red Blood Cell (RBC) Count 3.02 mill/uL (4.70-6.10); White Blood Cell (WBC) Count 6.7 10x3/uL (4.8-10.8)
[2023-03-16 04:23] LABS: Anion Gap 10 mmol/L (10-20); BUN (Urea Nitrogen) 14 mg/dL (8.4-25.7); Calc. Creatinine Clearance 130 mL/min (70-130); Calcium 8.7 mg/dL (7.8-10.44); Carbon Dioxide 27 mmol/L (23-31); Chloride 103 mmol/L (98-107); Estimated GFR 101; Glucose 173 mg/dL (80-115); Potassium 4.1 mmol/L (3.5-5.1); Sodium 136 mmol/L (136-145)
[2023-03-16] MEDS: Ibuprofen 200 MG TAB PO SCH ×3 (05:51→18:35)
[2023-03-16] MEDS: Lisinopril 5 MG TAB PO SCH (09:10)
[2023-03-16] MEDS: Atorvastatin Calcium 10 MG TAB PO SCH (09:10)
[2023-03-16] MEDS: Aspirin 81 mg Enteric Coated Tablet PO SCH (09:10)
[2023-03-16] MEDS: Nicotine 14 MG PATCH TD SCH (09:11)
[2023-03-16] MEDS: Chlorhexidine Gluconate 15 ML UDCUP SSP SCH ×3 (09:11→21:30)
[2023-03-16] MEDS: Insulin Glargine 30 UNITS/0.3 ML VIAL SC SCH (09:11)
[2023-03-16] MEDS: HumaLOG 300 UNITS/3 ML VIAL SC PRN ×2 (12:02→18:51)
[2023-03-16] MEDS: Micafungin 100 MG in Sodium Chloride 0.9% 100 ML IVPB SCH (15:44)
[2023-03-17] MEDS: Ibuprofen 200 MG TAB PO SCH ×5 (01:02→23:01)
[2023-03-17] MEDS: Meropenem 1 GM in Sodium Chloride 0.9% 100 ML IVPB SCH ×3 (05:31→23:01)
[2023-03-17] MEDS: HumaLOG 300 UNITS/3 ML VIAL SC PRN (05:46)
[2023-03-17] MEDS: Aspirin 81 mg Enteric Coated Tablet PO SCH (09:36)
[2023-03-17] MEDS: Nicotine 14 MG PATCH TD SCH (09:36)
[2023-03-17] MEDS: Lisinopril 5 MG TAB PO SCH (09:36)
[2023-03-17] MEDS: Chlorhexidine Gluconate 15 ML UDCUP SSP SCH ×3 (09:36→19:44)
[2023-03-17] MEDS: Atorvastatin Calcium 10 MG TAB PO SCH (09:36)
[2023-03-17] MEDS: Insulin Glargine 30 UNITS/0.3 ML VIAL SC SCH (09:37)
[2023-03-17] MEDS: Micafungin 100 MG in Sodium Chloride 0.9% 100 ML IVPB SCH (14:33)
[2023-03-18] MEDS: Ibuprofen 200 MG TAB PO SCH ×4 (05:26→23:23)
[2023-03-18] MEDS: Meropenem 1 GM in Sodium Chloride 0.9% 100 ML IVPB SCH ×3 (05:27→23:23)
[2023-03-18 05:47] LABS: #Eosinphils 0.3 thou/uL (0.0-0.7); #Monocytes 0.7 thou/uL (0.11-0.59); #Neutrophils 2.7 thou/uL (1.40-6.50); %Basophils 0.5 % (0.0-1.0); %Lymphocytes 39.8 % (21.0-51.0); %Monocytes 11.6 % (0.0-10.0); %Neutrophils 42.3 % (42.0-75.0); Hematocrit 31.9 % (42.0-52.0); Mean Corpuscular HGB CONC 34.5 g/dL (32.0-36.0); Mean Corpuscular Hemoglobin 34.1 pg (27.0-31.0); Mean Corpuscular Volume 98.8 fl (78.0-98.0); Platelet Count 328 10x3/uL (130-400); RBC Distribution Width 12.9 % (11.5-14.5); Red Blood Cell (RBC) Count 3.23 mill/uL (4.70-6.10); White Blood Cell (WBC) Count 6.4 10x3/uL (4.8-10.8)
[2023-03-18 06:07] LABS: Anion Gap 11 mmol/L (10-20); BUN (Urea Nitrogen) 15 mg/dL (8.4-25.7); CRP (Inflammatory) Less than 0.50 mg/dL (= or < 0.5); Calc. Creatinine Clearance 137 mL/min (70-130); Calcium 8.7 mg/dL (7.8-10.44); Carbon Dioxide 27 mmol/L (23-31); Chloride 102 mmol/L (98-107); Estimated GFR 102; Glucose 146 mg/dL (80-115); Potassium 4.4 mmol/L (3.5-5.1); Sodium 136 mmol/L (136-145)
[2023-03-18] MEDS: Insulin Glargine 30 UNITS/0.3 ML VIAL SC SCH (09:36)
[2023-03-18] MEDS: Chlorhexidine Gluconate 15 ML UDCUP SSP SCH ×3 (09:36→20:44)
[2023-03-18] MEDS: Atorvastatin Calcium 10 MG TAB PO SCH (09:36)
[2023-03-18] MEDS: Lisinopril 5 MG TAB PO SCH (09:36)
[2023-03-18] MEDS: Aspirin 81 mg Enteric Coated Tablet PO SCH (09:41)
[2023-03-18] MEDS: Nicotine 14 MG PATCH TD SCH (11:43)
[2023-03-18] MEDS: Micafungin 100 MG in Sodium Chloride 0.9% 100 ML IVPB SCH (13:40)
[2023-03-18] MEDS: HumaLOG 300 UNITS/3 ML VIAL SC PRN (18:16)
[2023-03-18 18:47] LABS: HIV (1/2) Antibody/Antigen Non-Reactive (NonReactive); HIV 1/2 INDEX 0.13 S/CO (<1.00)
[2023-03-19] MEDS: Ibuprofen 200 MG TAB PO SCH ×4 (05:49→23:06)
[2023-03-19] MEDS: Meropenem 1 GM in Sodium Chloride 0.9% 100 ML IVPB SCH ×3 (05:54→23:08)
[2023-03-19 06:10] LABS: #Basophils 0.1 thou/uL (0.0-0.2); #Eosinphils 0.3 thou/uL (0.0-0.7); #Monocytes 0.8 thou/uL (0.11-0.59); #Neutrophils 2.8 thou/uL (1.40-6.50); %Basophils 0.7 % (0.0-1.0); %Eosinophils 4.5 % (0.0-10.0); %Monocytes 11.6 % (0.0-10.0); %Neutrophils 38.6 % (42.0-75.0); Hemoglobin 11.3 g/dL (14.0-18.0); Mean Corpuscular HGB CONC 34.2 g/dL (32.0-36.0); Mean Corpuscular Hemoglobin 33.8 pg (27.0-31.0); Mean Corpuscular Volume 98.8 fl (78.0-98.0); Mean Platelet Volume 8.9 fL (7.4-10.4); Platelet Count 322 10x3/uL (130-400); RBC Distribution Width 13.2 % (11.5-14.5); Red Blood Cell (RBC) Count 3.34 mill/uL (4.70-6.10); White Blood Cell (WBC) Count 7.3 10x3/uL (4.8-10.8)
[2023-03-19 06:34] LABS: Anion Gap 16 mmol/L (10-20); BUN (Urea Nitrogen) 15 mg/dL (8.4-25.7); Calc. Creatinine Clearance 135 mL/min (70-130); Carbon Dioxide 24 mmol/L (23-31); Chloride 102 mmol/L (98-107); Estimated GFR 102; Glucose 174 mg/dL (80-115); Potassium 4.5 mmol/L (3.5-5.1); Sodium 137 mmol/L (136-145)
[2023-03-19] MEDS: Chlorhexidine Gluconate 15 ML UDCUP SSP SCH ×3 (09:03→20:42)
[2023-03-19] MEDS: Nicotine 14 MG PATCH TD SCH (09:03)
[2023-03-19] MEDS: Insulin Glargine 30 UNITS/0.3 ML VIAL SC SCH (09:03)
[2023-03-19] MEDS: Aspirin 81 mg Enteric Coated Tablet PO SCH (09:03)
[2023-03-19] MEDS: Atorvastatin Calcium 10 MG TAB PO SCH (09:03)
[2023-03-19] MEDS: Lisinopril 5 MG TAB PO SCH (09:03)
[2023-03-19] MEDS: Micafungin 100 MG in Sodium Chloride 0.9% 100 ML IVPB SCH (13:17)
[2023-03-20] MEDS: Ibuprofen 200 MG TAB PO SCH ×4 (05:21→23:12)
[2023-03-20] MEDS: Meropenem 1 GM in Sodium Chloride 0.9% 100 ML IVPB SCH ×3 (05:22→22:06)
[2023-03-20 05:37] LABS: #Eosinphils 0.3 thou/uL (0.0-0.7); #Monocytes 0.7 thou/uL (0.11-0.59); #Neutrophils 2.3 thou/uL (1.40-6.50); %Basophils 0.7 % (0.0-1.0); %Eosinophils 5.9 % (0.0-10.0); %Monocytes 12.1 % (0.0-10.0); %Neutrophils 39.9 % (42.0-75.0); Hematocrit 32.5 % (42.0-52.0); Hemoglobin 11.3 g/dL (14.0-18.0); Mean Corpuscular HGB CONC 34.8 g/dL (32.0-36.0); Mean Corpuscular Volume 97.9 fl (78.0-98.0); Mean Platelet Volume 9.1 fL (7.4-10.4); Platelet Count 322 10x3/uL (130-400); RBC Distribution Width 13.2 % (11.5-14.5); Red Blood Cell (RBC) Count 3.32 mill/uL (4.70-6.10); White Blood Cell (WBC) Count 5.6 10x3/uL (4.8-10.8)
[2023-03-20 06:02] LABS: Anion Gap 10 mmol/L (10-20); BUN (Urea Nitrogen) 14 mg/dL (8.4-25.7); Calc. Creatinine Clearance 135 mL/min (70-130); Calcium 8.9 mg/dL (7.8-10.44); Carbon Dioxide 28 mmol/L (23-31); Chloride 103 mmol/L (98-107); Estimated GFR 102; Glucose 142 mg/dL (80-115); Potassium 4.3 mmol/L (3.5-5.1); Sodium 137 mmol/L (136-145)
[2023-03-20] MEDS: Aspirin 81 mg Enteric Coated Tablet PO SCH (10:03)
[2023-03-20] MEDS: Lisinopril 5 MG TAB PO SCH (10:03)
[2023-03-20] MEDS: Chlorhexidine Gluconate 15 ML UDCUP SSP SCH ×3 (10:03→20:25)
[2023-03-20] MEDS: Nicotine 14 MG PATCH TD SCH (10:04)
[2023-03-20] MEDS: Insulin Glargine 30 UNITS/0.3 ML VIAL SC SCH (10:43)
[2023-03-20] MEDS: Atorvastatin Calcium 10 MG TAB PO SCH (13:04)
[2023-03-20] MEDS: Micafungin 100 MG in Sodium Chloride 0.9% 100 ML IVPB SCH (13:35)
[2023-03-20] MEDS: HumaLOG 300 UNITS/3 ML VIAL SC PRN (22:07)
[2023-03-21] MEDS: Ibuprofen 200 MG TAB PO SCH ×3 (05:10→17:40)
[2023-03-21] MEDS: Meropenem 1 GM in Sodium Chloride 0.9% 100 ML IVPB SCH ×3 (05:15→21:27)
[2023-03-21 05:39] LABS: #Eosinphils 0.3 thou/uL (0.0-0.7); #Monocytes 0.6 thou/uL (0.11-0.59); #Neutrophils 2.4 thou/uL (1.40-6.50); %Basophils 0.7 % (0.0-1.0); %Eosinophils 5.7 % (0.0-10.0); %Lymphocytes 41.8 % (21.0-51.0); %Monocytes 10.6 % (0.0-10.0); %Neutrophils 40.9 % (42.0-75.0); Hematocrit 33.4 % (42.0-52.0); Hemoglobin 11.7 g/dL (14.0-18.0); Mean Corpuscular Hemoglobin 34.6 pg (27.0-31.0); Mean Corpuscular Volume 98.8 fl (78.0-98.0); Mean Platelet Volume 9.2 fL (7.4-10.4); Platelet Count 310 10x3/uL (130-400); RBC Distribution Width 13.1 % (11.5-14.5); Red Blood Cell (RBC) Count 3.38 mill/uL (4.70-6.10); White Blood Cell (WBC) Count 5.9 10x3/uL (4.8-10.8)
[2023-03-21 06:13] LABS: Anion Gap 12 mmol/L (10-20); BUN (Urea Nitrogen) 19 mg/dL (8.4-25.7); Calc. Creatinine Clearance 133 mL/min (70-130); Calcium 8.9 mg/dL (7.8-10.44); Carbon Dioxide 27 mmol/L (23-31); Chloride 102 mmol/L (98-107); Estimated GFR 101; Glucose 149 mg/dL (80-115); Potassium 4.5 mmol/L (3.5-5.1); Sodium 136 mmol/L (136-145)
[2023-03-21] MEDS: Chlorhexidine Gluconate 15 ML UDCUP SSP SCH ×3 (08:17→21:27)
[2023-03-21] MEDS: Lisinopril 5 MG TAB PO SCH (08:17)
[2023-03-21] MEDS: Insulin Glargine 30 UNITS/0.3 ML VIAL SC SCH (08:18)
[2023-03-21] MEDS: Atorvastatin Calcium 10 MG TAB PO SCH (08:18)
[2023-03-21] MEDS: Aspirin 81 mg Enteric Coated Tablet PO SCH (08:18)
[2023-03-21] MEDS: Nicotine 14 MG PATCH TD SCH (08:19)
[2023-03-21] MEDS: HumaLOG 300 UNITS/3 ML VIAL SC PRN ×2 (13:18→22:41)
[2023-03-21] MEDS: Micafungin 100 MG in Sodium Chloride 0.9% 100 ML IVPB SCH (13:19)
[2023-03-21] MEDS: Melatonin 3 MG TAB PO PRN (22:41)
[2023-03-22] MEDS: Ibuprofen 200 MG TAB PO SCH ×5 (00:27→23:17)
[2023-03-22] MEDS: Meropenem 1 GM in Sodium Chloride 0.9% 100 ML IVPB SCH ×3 (05:22→22:10)
[2023-03-22 05:55] LABS: Hematocrit 32.7 % (42.0-52.0); Hemoglobin 11.3 g/dL (14.0-18.0); Mean Corpuscular HGB CONC 34.6 g/dL (32.0-36.0); Mean Corpuscular Hemoglobin 33.8 pg (27.0-31.0); Mean Corpuscular Volume 97.9 fl (78.0-98.0); Mean Platelet Volume 10.4 fL (7.4-10.4); Platelet Count 214 10x3/uL (130-400); Red Blood Cell (RBC) Count 3.34 mill/uL (4.70-6.10); White Blood Cell (WBC) Count 5.7 10x3/uL (4.8-10.8)
[2023-03-22 06:16] LABS: Delete Auto Diff?? YES; Manual Diff?? YES
[2023-03-22 06:45] LABS: CellaVision Operator ID lab.abc; Eosinophils 3 % (0-10); Lymphocytes 32 % (21-51); Monocytes 9 % (0-10); Neutrophil 48 % (42-75); Platelet Adequacy Comment Platelets Normal; RBC Morphology Within Normal Limits; Reactive Lymphocytes 7 % (0-10); Total Cell Count 101
[2023-03-22 07:08] LABS: Anion Gap 12 mmol/L (10-20); BUN (Urea Nitrogen) 17 mg/dL (8.4-25.7); Calc. Creatinine Clearance 131 mL/min (70-130); Calcium 8.8 mg/dL (7.8-10.44); Carbon Dioxide 27 mmol/L (23-31); Chloride 102 mmol/L (98-107); Estimated GFR 101; Glucose 145 mg/dL (80-115); Potassium 4.3 mmol/L (3.5-5.1); Sodium 137 mmol/L (136-145)
[2023-03-22] MEDS: Lisinopril 5 MG TAB PO SCH (09:54)
[2023-03-22] MEDS: Polyethylene Glycol 3350 17 GM Packet PO PRN (09:54)
[2023-03-22] MEDS: Insulin Glargine 30 UNITS/0.3 ML VIAL SC SCH (09:54)
[2023-03-22] MEDS: Aspirin 81 mg Enteric Coated Tablet PO SCH (09:54)
[2023-03-22] MEDS: Nicotine 14 MG PATCH TD SCH (09:55)
[2023-03-22] MEDS: Atorvastatin Calcium 10 MG TAB PO SCH (09:55)
[2023-03-22] MEDS: Chlorhexidine Gluconate 15 ML UDCUP SSP SCH ×3 (09:55→22:00)
[2023-03-22] MEDS: Micafungin 100 MG in Sodium Chloride 0.9% 100 ML IVPB SCH (13:07)
[2023-03-22] MEDS: HumaLOG 300 UNITS/3 ML VIAL SC PRN (23:16)
[2023-03-23] MEDS: Meropenem 1 GM in Sodium Chloride 0.9% 100 ML IVPB SCH ×3 (06:03→21:46)
[2023-03-23] MEDS: Ibuprofen 200 MG TAB PO SCH ×4 (06:03→23:10)
[2023-03-23 07:11] LABS: Anion Gap 10 mmol/L (10-20); BUN (Urea Nitrogen) 16 mg/dL (8.4-25.7); Calc. Creatinine Clearance 139 mL/min (70-130); Calcium 8.7 mg/dL (7.8-10.44); Carbon Dioxide 28 mmol/L (23-31); Chloride 101 mmol/L (98-107); Estimated GFR 103; Glucose 132 mg/dL (80-115); Potassium 4.4 mmol/L (3.5-5.1); Sodium 135 mmol/L (136-145)
[2023-03-23 07:43] LABS: #Basophils 0.1 thou/uL (0.0-0.2); #Eosinphils 0.3 thou/uL (0.0-0.7); #Monocytes 0.7 thou/uL (0.11-0.59); #Neutrophils 2.1 thou/uL (1.40-6.50); %Basophils 0.9 % (0.0-1.0); %Lymphocytes 44.1 % (21.0-51.0); %Monocytes 11.5 % (0.0-10.0); %Neutrophils 37.3 % (42.0-75.0); Hematocrit 33.9 % (42.0-52.0); Hemoglobin 11.8 g/dL (14.0-18.0); Mean Corpuscular HGB CONC 34.8 g/dL (32.0-36.0); Mean Corpuscular Hemoglobin 34.4 pg (27.0-31.0); Mean Corpuscular Volume 98.8 fl (78.0-98.0); Mean Platelet Volume 9.6 fL (7.4-10.4); Platelet Count 321 10x3/uL (130-400); RBC Distribution Width 13.2 % (11.5-14.5); Red Blood Cell (RBC) Count 3.43 mill/uL (4.70-6.10); White Blood Cell (WBC) Count 5.7 10x3/uL (4.8-10.8)
[2023-03-23] MEDS: Chlorhexidine Gluconate 15 ML UDCUP SSP SCH ×3 (09:29→20:56)
[2023-03-23] MEDS: Lisinopril 5 MG TAB PO SCH (09:29)
[2023-03-23] MEDS: Aspirin 81 mg Enteric Coated Tablet PO SCH (09:29)
[2023-03-23] MEDS: Atorvastatin Calcium 10 MG TAB PO SCH (09:29)
[2023-03-23] MEDS: Nicotine 14 MG PATCH TD SCH (09:32)
[2023-03-23] MEDS: Insulin Glargine 30 UNITS/0.3 ML VIAL SC SCH (09:32)
[2023-03-23] MEDS ORDERED: Admixture Fee 1 EACH in Dextrose 5% in Water 10 ML FS SCH (13:59)
[2023-03-23] MEDS ORDERED: AMBISOME IVPB SCH (14:00)
[2023-03-23] MEDS ORDERED: STERILE WATER IVPB SCH (14:00)
[2023-03-23] MEDS ORDERED: DEXTROSE IVPB SCH (14:00)
[2023-03-23] MEDS ORDERED: ADMIXTURE FEE IVPB SCH (14:00)
[2023-03-23] MEDS ORDERED: [UNRECOGNIZED DRUG - OTHER] IVPB SCH (14:00)
[2023-03-23] MEDS: Admixture Fee 1 EACH in Dextrose 5% in Water 10 ML FS SCH ×2 (18:30→20:55)
[2023-03-23] MEDS: STERILE WATER IVPB SCH (18:32)
[2023-03-23] MEDS: DEXTROSE IVPB SCH (18:32)
[2023-03-23] MEDS: ADMIXTURE FEE IVPB SCH (18:32)
[2023-03-23] MEDS: AMBISOME IVPB SCH (18:32)
[2023-03-23] MEDS: [UNRECOGNIZED DRUG - OTHER] IVPB SCH (18:32)
[2023-03-23] MEDS: HumaLOG 300 UNITS/3 ML VIAL SC PRN (22:45)
[2023-03-24] MEDS: Ibuprofen 200 MG TAB PO SCH ×3 (06:08→17:37)
[2023-03-24] MEDS: Meropenem 1 GM in Sodium Chloride 0.9% 100 ML IVPB SCH ×3 (06:09→20:08)
[2023-03-24] MEDS: HumaLOG 300 UNITS/3 ML VIAL SC PRN (10:04)
[2023-03-24] MEDS: Chlorhexidine Gluconate 15 ML UDCUP SSP SCH ×3 (10:05→20:08)
[2023-03-24] MEDS: Insulin Glargine 30 UNITS/0.3 ML VIAL SC SCH (10:05)
[2023-03-24] MEDS: Aspirin 81 mg Enteric Coated Tablet PO SCH (10:05)
[2023-03-24] MEDS: Atorvastatin Calcium 10 MG TAB PO SCH (10:06)
[2023-03-24] MEDS: Lisinopril 5 MG TAB PO SCH (10:06)
[2023-03-24] MEDS: Nicotine 14 MG PATCH TD SCH (10:07)
[2023-03-24 10:38] LABS: #Basophils 0.1 thou/uL (0.0-0.2); #Eosinphils 0.4 thou/uL (0.0-0.7); #Monocytes 0.7 thou/uL (0.11-0.59); #Neutrophils 2.2 thou/uL (1.40-6.50); %Eosinophils 7.4 % (0.0-10.0); %Monocytes 12.9 % (0.0-10.0); %Neutrophils 43.9 % (42.0-75.0); Hematocrit 35.6 % (42.0-52.0); Hemoglobin 12.3 g/dL (14.0-18.0); Mean Corpuscular HGB CONC 34.6 g/dL (32.0-36.0); Mean Corpuscular Volume 98.3 fl (78.0-98.0); Mean Platelet Volume 9.5 fL (7.4-10.4); Platelet Count 320 10x3/uL (130-400); Red Blood Cell (RBC) Count 3.62 mill/uL (4.70-6.10)
[2023-03-24 10:55] LABS: Anion Gap 13 mmol/L (10-20); BUN (Urea Nitrogen) 20 mg/dL (8.4-25.7); Calc. Creatinine Clearance 106 mL/min (70-130); Calcium 9.3 mg/dL (7.8-10.44); Carbon Dioxide 27 mmol/L (23-31); Chloride 101 mmol/L (98-107); Estimated GFR 95; Glucose 197 mg/dL (80-115); Potassium 4.6 mmol/L (3.5-5.1); Sodium 136 mmol/L (136-145)
[2023-03-24] MEDS ORDERED: Magnesium 2 GM/50 ML(in water) 2 GM in Premix 1 BAG IVPB SCH (14:00)
[2023-03-24] MEDS: Admixture Fee 1 EACH in Dextrose 5% in Water 10 ML FS SCH ×2 (17:38→20:08)
[2023-03-24] MEDS: STERILE WATER IVPB SCH (17:39)
[2023-03-24] MEDS: [UNRECOGNIZED DRUG - OTHER] IVPB SCH (17:39)
[2023-03-24] MEDS: AMBISOME IVPB SCH (17:39)
[2023-03-24] MEDS: DEXTROSE IVPB SCH (17:39)
[2023-03-24] MEDS: ADMIXTURE FEE IVPB SCH (17:39)
[2023-03-25] MEDS: Ibuprofen 200 MG TAB PO SCH ×5 (00:35→23:50)
[2023-03-25] MEDS: Meropenem 1 GM in Sodium Chloride 0.9% 100 ML IVPB SCH ×3 (06:01→23:10)
[2023-03-25 06:14] LABS: #Eosinphils 0.4 thou/uL (0.0-0.7); #Monocytes 0.8 thou/uL (0.11-0.59); #Neutrophils 2.2 thou/uL (1.40-6.50); %Basophils 0.7 % (0.0-1.0); %Eosinophils 7.3 % (0.0-10.0); %Lymphocytes 38.9 % (21.0-51.0); %Monocytes 13.9 % (0.0-10.0); %Neutrophils 38.8 % (42.0-75.0); Hematocrit 36.7 % (42.0-52.0); Hemoglobin 12.7 g/dL (14.0-18.0); Mean Corpuscular HGB CONC 34.6 g/dL (32.0-36.0); Mean Corpuscular Hemoglobin 33.9 pg (27.0-31.0); Mean Corpuscular Volume 97.9 fl (78.0-98.0); Mean Platelet Volume 9.2 fL (7.4-10.4); Platelet Count 240 10x3/uL (130-400); RBC Distribution Width 12.6 % (11.5-14.5); Red Blood Cell (RBC) Count 3.75 mill/uL (4.70-6.10); White Blood Cell (WBC) Count 5.6 10x3/uL (4.8-10.8)
[2023-03-25 06:48] LABS: Anion Gap 13 mmol/L (10-20); BUN (Urea Nitrogen) 27 mg/dL (8.4-25.7); Calc. Creatinine Clearance 92 mL/min (70-130); Calcium 8.9 mg/dL (7.8-10.44); Carbon Dioxide 27 mmol/L (23-31); Chloride 101 mmol/L (98-107); Estimated GFR 80; Glucose 129 mg/dL (80-115); Potassium 4.3 mmol/L (3.5-5.1); Sodium 137 mmol/L (136-145)
[2023-03-25 07:04] LABS: Magnesium 2.3 mg/dL (1.6-2.6)
[2023-03-25] MEDS: Chlorhexidine Gluconate 15 ML UDCUP SSP SCH ×3 (08:36→21:18)
[2023-03-25] MEDS: Aspirin 81 mg Enteric Coated Tablet PO SCH (08:37)
[2023-03-25] MEDS: Atorvastatin Calcium 10 MG TAB PO SCH (08:37)
[2023-03-25] MEDS: Lisinopril 5 MG TAB PO SCH (08:37)
[2023-03-25] MEDS: Nicotine 14 MG PATCH TD SCH (08:37)
[2023-03-25] MEDS: Insulin Glargine 30 UNITS/0.3 ML VIAL SC SCH (08:37)
[2023-03-25] MEDS: metFORMIN 500 MG TAB PO SCH ×2 (09:16→21:18)
[2023-03-25] MEDS: Multivitamin W/ Minerals 1 TAB PO SCH (09:17)
[2023-03-25] MEDS: STERILE WATER IVPB SCH (17:33)
[2023-03-25] MEDS: [UNRECOGNIZED DRUG - OTHER] IVPB SCH (17:33)
[2023-03-25] MEDS: AMBISOME IVPB SCH (17:33)
[2023-03-25] MEDS: ADMIXTURE FEE IVPB SCH (17:33)
[2023-03-25] MEDS: DEXTROSE IVPB SCH (17:33)
[2023-03-25] MEDS: Admixture Fee 1 EACH in Dextrose 5% in Water 10 ML FS SCH ×2 (17:40→20:20)
[2023-03-25] MEDS: Melatonin 3 MG TAB PO PRN (21:18)
[2023-03-25] MEDS: Acetaminophen 500 MG TAB PO PRN (21:22)
[2023-03-26] MEDS: Meropenem 1 GM in Sodium Chloride 0.9% 100 ML IVPB SCH ×3 (06:00→21:59)
[2023-03-26] MEDS: Ibuprofen 200 MG TAB PO SCH (06:00)
[2023-03-26 06:15] LABS: #Eosinphils 0.3 thou/uL (0.0-0.7); #Monocytes 0.5 thou/uL (0.11-0.59); #Neutrophils 1.9 thou/uL (1.40-6.50); %Basophils 0.7 % (0.0-1.0); %Eosinophils 6.9 % (0.0-10.0); %Lymphocytes 35.3 % (21.0-51.0); %Monocytes 12.4 % (0.0-10.0); %Neutrophils 44.2 % (42.0-75.0); Hematocrit 42.7 % (42.0-52.0); Hemoglobin 14.9 g/dL (14.0-18.0); Mean Corpuscular HGB CONC 34.9 g/dL (32.0-36.0); Mean Corpuscular Hemoglobin 33.7 pg (27.0-31.0); Mean Corpuscular Volume 96.6 fl (78.0-98.0); Mean Platelet Volume 9.3 fL (7.4-10.4); Platelet Count 191 10x3/uL (130-400); RBC Distribution Width 12.6 % (11.5-14.5); Red Blood Cell (RBC) Count 4.42 mill/uL (4.70-6.10); White Blood Cell (WBC) Count 4.2 10x3/uL (4.8-10.8)
[2023-03-26 06:45] LABS: Anion Gap 12 mmol/L (10-20); BUN (Urea Nitrogen) 37 mg/dL (8.4-25.7); Calc. Creatinine Clearance 59 mL/min (70-130); Calcium 9.3 mg/dL (7.8-10.44); Carbon Dioxide 26 mmol/L (23-31); Chloride 102 mmol/L (98-107); Estimated GFR 46; Glucose 108 mg/dL (80-115); Magnesium 2.1 mg/dL (1.6-2.6); Potassium 4.2 mmol/L (3.5-5.1); Sodium 136 mmol/L (136-145)
[2023-03-26] MEDS: Aspirin 81 mg Enteric Coated Tablet PO SCH (09:17)
[2023-03-26] MEDS: Atorvastatin Calcium 10 MG TAB PO SCH (09:17)
[2023-03-26] MEDS: Multivitamin W/ Minerals 1 TAB PO SCH (09:17)
[2023-03-26] MEDS: Insulin Glargine 30 UNITS/0.3 ML VIAL SC SCH (09:17)
[2023-03-26] MEDS: Chlorhexidine Gluconate 15 ML UDCUP SSP SCH ×2 (09:17→20:24)
[2023-03-26] MEDS: Nicotine 14 MG PATCH TD SCH (09:17)
[2023-03-26] MEDS: Sodium Chloride 0.9% 1,000 ML IV SCH ×2 (09:28→22:08)
[2023-03-26] MEDS: metFORMIN 500 MG TAB PO SCH (11:19)
[2023-03-26] MEDS: Lisinopril 5 MG TAB PO SCH (11:20)
[2023-03-26] MEDS: Admixture Fee 1 EACH in Dextrose 5% in Water 10 ML FS SCH ×2 (18:55→21:59)
[2023-03-26] MEDS: ADMIXTURE FEE IVPB SCH (18:55)
[2023-03-26] MEDS: AMBISOME IVPB SCH (18:55)
[2023-03-26] MEDS: [UNRECOGNIZED DRUG - OTHER] IVPB SCH (18:55)
[2023-03-26] MEDS: DEXTROSE IVPB SCH (18:55)
[2023-03-26] MEDS: STERILE WATER IVPB SCH (18:55)
[2023-03-26] MEDS: HumaLOG 300 UNITS/3 ML VIAL SC PRN (20:32)
[2023-03-27] MEDS: Meropenem 1 GM in Sodium Chloride 0.9% 100 ML IVPB SCH ×3 (05:12→21:53)
[2023-03-27] MEDS: Sodium Chloride 0.9% 1,000 ML IV SCH ×3 (05:14→21:02)
[2023-03-27 05:31] LABS: #Basophils 0.1 thou/uL (0.0-0.2); #Eosinphils 0.4 thou/uL (0.0-0.7); #Monocytes 0.8 thou/uL (0.11-0.59); #Neutrophils 3.4 thou/uL (1.40-6.50); %Basophils 0.7 % (0.0-1.0); %Eosinophils 5.2 % (0.0-10.0); %Lymphocytes 32.3 % (21.0-51.0); %Monocytes 11.6 % (0.0-10.0); %Neutrophils 49.8 % (42.0-75.0); Mean Corpuscular HGB CONC 34.9 g/dL (32.0-36.0); Mean Corpuscular Hemoglobin 34.1 pg (27.0-31.0); Mean Corpuscular Volume 97.5 fl (78.0-98.0); Mean Platelet Volume 9.6 fL (7.4-10.4); Platelet Count 249 10x3/uL (130-400); RBC Distribution Width 12.5 % (11.5-14.5); White Blood Cell (WBC) Count 6.8 10x3/uL (4.8-10.8)
[2023-03-27 05:42] LABS: Hematocrit 31.2 % (42.0-52.0); Hemoglobin 10.9 g/dL (14.0-18.0)
[2023-03-27 05:57] LABS: Anion Gap 12 mmol/L (10-20); BUN (Urea Nitrogen) 32 mg/dL (8.4-25.7); Calc. Creatinine Clearance 85 mL/min (70-130); Calcium 9.1 mg/dL (7.8-10.44); Carbon Dioxide 26 mmol/L (23-31); Chloride 103 mmol/L (98-107); Estimated GFR 72; Glucose 149 mg/dL (80-115); Magnesium 1.8 mg/dL (1.6-2.6); Potassium 4.4 mmol/L (3.5-5.1); Sodium 137 mmol/L (136-145)
[2023-03-27] MEDS ORDERED: Magnesium 2 GM/50 ML(in water) 2 GM in Premix 1 BAG IVPB SCH ×2 (08:00→10:30)
[2023-03-27] MEDS: Chlorhexidine Gluconate 15 ML UDCUP SSP SCH ×2 (10:26→21:00)
[2023-03-27] MEDS: Nicotine 14 MG PATCH TD SCH (10:26)
[2023-03-27] MEDS: Aspirin 81 mg Enteric Coated Tablet PO SCH (10:27)
[2023-03-27] MEDS: Multivitamin W/ Minerals 1 TAB PO SCH (10:27)
[2023-03-27] MEDS: Atorvastatin Calcium 10 MG TAB PO SCH (10:27)
[2023-03-27] MEDS: Insulin Glargine 30 UNITS/0.3 ML VIAL SC SCH (10:40)
[2023-03-27] MEDS: ADMIXTURE FEE IVPB SCH (17:57)
[2023-03-27] MEDS: DEXTROSE IVPB SCH (17:57)
[2023-03-27] MEDS: AMBISOME IVPB SCH (17:57)
[2023-03-27] MEDS: STERILE WATER IVPB SCH (17:57)
[2023-03-27] MEDS: [UNRECOGNIZED DRUG - OTHER] IVPB SCH (17:57)
[2023-03-27] MEDS: Admixture Fee 1 EACH in Dextrose 5% in Water 10 ML FS SCH ×2 (17:59→21:01)
[2023-03-27] MEDS: HumaLOG 300 UNITS/3 ML VIAL SC PRN (21:04)
[2023-03-28] MEDS: Sodium Chloride 0.9% 1,000 ML IV SCH ×3 (01:34→16:16)
[2023-03-28] MEDS: Meropenem 1 GM in Sodium Chloride 0.9% 100 ML IVPB SCH ×3 (05:19→21:53)
[2023-03-28] MEDS: HumaLOG 300 UNITS/3 ML VIAL SC PRN ×2 (05:56→17:26)
[2023-03-28 06:11] LABS: #Eosinphils 0.3 thou/uL (0.0-0.7); #Monocytes 0.9 thou/uL (0.11-0.59); #Neutrophils 3.9 thou/uL (1.40-6.50); %Basophils 0.3 % (0.0-1.0); %Lymphocytes 24.8 % (21.0-51.0); %Monocytes 13.7 % (0.0-10.0); %Neutrophils 56.8 % (42.0-75.0); Hemoglobin 10.5 g/dL (14.0-18.0); Mean Corpuscular Hemoglobin 33.8 pg (27.0-31.0); Mean Corpuscular Volume 96.5 fl (78.0-98.0); Mean Platelet Volume 9.6 fL (7.4-10.4); Platelet Count 241 10x3/uL (130-400); RBC Distribution Width 12.2 % (11.5-14.5); Red Blood Cell (RBC) Count 3.11 mill/uL (4.70-6.10); White Blood Cell (WBC) Count 6.8 10x3/uL (4.8-10.8)
[2023-03-28 06:40] LABS: Anion Gap 12 mmol/L (10-20); BUN (Urea Nitrogen) 35 mg/dL (8.4-25.7); Calc. Creatinine Clearance 68 mL/min (70-130); Calcium 9.2 mg/dL (7.8-10.44); Carbon Dioxide 27 mmol/L (23-31); Chloride 102 mmol/L (98-107); Estimated GFR 56; Glucose 188 mg/dL (80-115); Potassium 4.3 mmol/L (3.5-5.1); Sodium 137 mmol/L (136-145)
[2023-03-28] MEDS ORDERED: Magnesium 2 GM/50 ML(in water) 2 GM in Premix 1 BAG IVPB SCH (08:00)
[2023-03-28] MEDS: Nicotine 14 MG PATCH TD SCH (08:20)
[2023-03-28] MEDS: Atorvastatin Calcium 10 MG TAB PO SCH (08:20)
[2023-03-28] MEDS: Multivitamin W/ Minerals 1 TAB PO SCH (08:20)
[2023-03-28] MEDS: Insulin Glargine 30 UNITS/0.3 ML VIAL SC SCH (08:20)
[2023-03-28] MEDS: Chlorhexidine Gluconate 15 ML UDCUP SSP SCH ×2 (08:20→21:53)
[2023-03-28] MEDS: Aspirin 81 mg Enteric Coated Tablet PO SCH (08:20)
[2023-03-28] MEDS: Admixture Fee 1 EACH in Dextrose 5% in Water 10 ML FS SCH ×2 (16:16→18:43)
[2023-03-28] MEDS: DEXTROSE IVPB SCH (16:16)
[2023-03-28] MEDS: ADMIXTURE FEE IVPB SCH (16:16)
[2023-03-28] MEDS: [UNRECOGNIZED DRUG - OTHER] IVPB SCH (16:16)
[2023-03-28] MEDS: STERILE WATER IVPB SCH (16:16)
[2023-03-28] MEDS: AMBISOME IVPB SCH (16:16)
[2023-03-29] MEDS: Sodium Chloride 0.9% 1,000 ML IV SCH ×4 (02:29→21:21)
[2023-03-29] MEDS: Meropenem 1 GM in Sodium Chloride 0.9% 100 ML IVPB SCH ×3 (06:30→21:11)
[2023-03-29 06:56] LABS: #Eosinphils 0.3 thou/uL (0.0-0.7); #Monocytes 0.9 thou/uL (0.11-0.59); #Neutrophils 3.1 thou/uL (1.40-6.50); %Basophils 0.5 % (0.0-1.0); %Eosinophils 3.9 % (0.0-10.0); %Lymphocytes 32.2 % (21.0-51.0); %Neutrophils 49.2 % (42.0-75.0); Hematocrit 27.5 % (42.0-52.0); Hemoglobin 9.6 g/dL (14.0-18.0); Mean Corpuscular HGB CONC 34.9 g/dL (32.0-36.0); Mean Corpuscular Hemoglobin 33.6 pg (27.0-31.0); Mean Corpuscular Volume 96.2 fl (78.0-98.0); Mean Platelet Volume 10.1 fL (7.4-10.4); Platelet Count 211 10x3/uL (130-400); RBC Distribution Width 12.3 % (11.5-14.5); Red Blood Cell (RBC) Count 2.86 mill/uL (4.70-6.10); White Blood Cell (WBC) Count 6.3 10x3/uL (4.8-10.8)
[2023-03-29 07:21] LABS: Anion Gap 9 mmol/L (10-20); BUN (Urea Nitrogen) 38 mg/dL (8.4-25.7); Calc. Creatinine Clearance 71 mL/min (70-130); Carbon Dioxide 29 mmol/L (23-31); Chloride 105 mmol/L (98-107); Estimated GFR 58; Glucose 147 mg/dL (80-115); Magnesium 2.2 mg/dL (1.6-2.6); Sodium 139 mmol/L (136-145)
[2023-03-29] MEDS: Chlorhexidine Gluconate 15 ML UDCUP SSP SCH ×2 (09:26→21:10)
[2023-03-29] MEDS: Multivitamin W/ Minerals 1 TAB PO SCH (09:26)
[2023-03-29] MEDS: Atorvastatin Calcium 10 MG TAB PO SCH (09:26)
[2023-03-29] MEDS: Insulin Glargine 30 UNITS/0.3 ML VIAL SC SCH (09:26)
[2023-03-29] MEDS: Nicotine 14 MG PATCH TD SCH (09:26)
[2023-03-29] MEDS: Aspirin 81 mg Enteric Coated Tablet PO SCH (09:26)
[2023-03-29] MEDS: STERILE WATER IVPB SCH (14:43)
[2023-03-29] MEDS: AMBISOME IVPB SCH (14:43)
[2023-03-29] MEDS: DEXTROSE IVPB SCH (14:43)
[2023-03-29] MEDS: [UNRECOGNIZED DRUG - OTHER] IVPB SCH (14:43)
[2023-03-29] MEDS: ADMIXTURE FEE IVPB SCH (14:43)
[2023-03-29] MEDS: Admixture Fee 1 EACH in Dextrose 5% in Water 10 ML FS SCH ×2 (14:45→17:01)
[2023-03-29 16:32] LABS: Bacteria/HPF None Seen HPF (None Seen); Bilirubin Negative (Negative); Blood, Urine Negative (Negative); Clarity Clear (Clear); Glucose, Urine (Dipstick) 70 mg/dL (Negative); Ketone, Urine Negative (Negative); Leukocyte Negative Leu/uL (Negative); Nitrite Negative (Negative); Protein, Urine (Dipstick) 10 mg/dL (Neg-Trace); RBC/HPF None Seen HPF (0-3); Specific Gravity, Urine 1.014 (1.002-1.036); Squamous Epithelial None Seen HPF (0-3); Urobilinogen Normal mg/dL (Less than 2); WBC/HPF 0-3 HPF (0-3)
[2023-03-29] MEDS: Melatonin 3 MG TAB PO PRN (21:15)
[2023-03-30] MEDS: Sodium Chloride 0.9% 1,000 ML IV SCH ×3 (04:20→20:36)
[2023-03-30] MEDS: Meropenem 1 GM in Sodium Chloride 0.9% 100 ML IVPB SCH ×3 (06:11→22:44)
[2023-03-30] MEDS: Aspirin 81 mg Enteric Coated Tablet PO SCH (08:41)
[2023-03-30] MEDS: Multivitamin W/ Minerals 1 TAB PO SCH (08:41)
[2023-03-30] MEDS: Chlorhexidine Gluconate 15 ML UDCUP SSP SCH ×2 (08:41→20:36)
[2023-03-30] MEDS: Nicotine 14 MG PATCH TD SCH (08:41)
[2023-03-30] MEDS: Atorvastatin Calcium 10 MG TAB PO SCH (08:42)
[2023-03-30] MEDS: Insulin Glargine 30 UNITS/0.3 ML VIAL SC SCH (08:42)
[2023-03-30 09:57] LABS: #Eosinphils 0.2 thou/uL (0.0-0.7); #Monocytes 0.6 thou/uL (0.11-0.59); #Neutrophils 2.9 thou/uL (1.40-6.50); %Basophils 0.8 % (0.0-1.0); %Eosinophils 4.1 % (0.0-10.0); %Lymphocytes 27.3 % (21.0-51.0); %Monocytes 12.4 % (0.0-10.0); Hematocrit 26.3 % (42.0-52.0); Hemoglobin 9.4 g/dL (14.0-18.0); Mean Corpuscular HGB CONC 35.7 g/dL (32.0-36.0); Mean Corpuscular Hemoglobin 34.4 pg (27.0-31.0); Mean Corpuscular Volume 96.3 fl (78.0-98.0); Mean Platelet Volume 10.1 fL (7.4-10.4); Platelet Count 177 10x3/uL (130-400); RBC Distribution Width 12.6 % (11.5-14.5); Red Blood Cell (RBC) Count 2.73 mill/uL (4.70-6.10); White Blood Cell (WBC) Count 5.2 10x3/uL (4.8-10.8)
[2023-03-30 10:25] LABS: Anion Gap 13 mmol/L (10-20); BUN (Urea Nitrogen) 33 mg/dL (8.4-25.7); Calc. Creatinine Clearance 79 mL/min (70-130); Calcium 8.6 mg/dL (7.8-10.44); Carbon Dioxide 24 mmol/L (23-31); Chloride 107 mmol/L (98-107); Estimated GFR 66; Glucose 186 mg/dL (80-115); Magnesium 1.7 mg/dL (1.6-2.6); Potassium 3.9 mmol/L (3.5-5.1); Sodium 140 mmol/L (136-145)
[2023-03-30] MEDS ORDERED: Magnesium 2 GM/50 ML(in water) 2 GM in Premix 1 BAG IVPB SCH (11:15)
[2023-03-30] MEDS: AMBISOME IVPB SCH (16:45)
[2023-03-30] MEDS: STERILE WATER IVPB SCH (16:45)
[2023-03-30] MEDS: ADMIXTURE FEE IVPB SCH (16:45)
[2023-03-30] MEDS: Admixture Fee 1 EACH in Dextrose 5% in Water 10 ML FS SCH ×2 (16:45→20:30)
[2023-03-30] MEDS: DEXTROSE IVPB SCH (16:45)
[2023-03-30] MEDS: [UNRECOGNIZED DRUG - OTHER] IVPB SCH (16:45)
[2023-03-31 04:53] LABS: Hematocrit 25.3 % (42.0-52.0); Hemoglobin 8.9 g/dL (14.0-18.0); Mean Corpuscular HGB CONC 35.2 g/dL (32.0-36.0); Mean Corpuscular Hemoglobin 34.2 pg (27.0-31.0); Mean Corpuscular Volume 97.3 fl (78.0-98.0); Mean Platelet Volume 10.1 fL (7.4-10.4); Platelet Count 179 10x3/uL (130-400); RBC Distribution Width 12.5 % (11.5-14.5); White Blood Cell (WBC) Count 6.1 10x3/uL (4.8-10.8)
[2023-03-31 05:01] LABS: Delete Auto Diff?? YES; Manual Diff?? YES
[2023-03-31] MEDS: Sodium Chloride 0.9% 1,000 ML IV SCH ×5 (05:01→21:32)
[2023-03-31 05:16] LABS: Anion Gap 11 mmol/L (10-20); BUN (Urea Nitrogen) 31 mg/dL (8.4-25.7); Calc. Creatinine Clearance 75 mL/min (70-130); Calcium 8.8 mg/dL (7.8-10.44); Carbon Dioxide 25 mmol/L (23-31); Chloride 109 mmol/L (98-107); Estimated GFR 62; Glucose 138 mg/dL (80-115); Potassium 3.8 mmol/L (3.5-5.1); Sodium 141 mmol/L (136-145)
[2023-03-31 05:28] LABS: Band 4 % (5-11); CellaVision Operator ID LAB.CLH1; Eosinophils 5 % (0-10); Hypochromia SLIGHT = 6-15 cells HPF (0-5); Lymphocytes 20 % (21-51); Monocytes 9 % (0-10); Neutrophil 61 % (42-75); Platelet Adequacy Comment Platelets Normal; Polychromasia SLIGHT = 2-3 cells HPF (0-2); Total Cell Count 100
[2023-03-31] MEDS: Meropenem 1 GM in Sodium Chloride 0.9% 100 ML IVPB SCH ×3 (06:11→20:50)
[2023-03-31] MEDS ORDERED: Magnesium 2 GM/50 ML(in water) 2 GM in Premix 1 BAG IVPB SCH (08:00)
[2023-03-31] MEDS: Aspirin 81 mg Enteric Coated Tablet PO SCH (08:50)
[2023-03-31] MEDS: Nicotine 14 MG PATCH TD SCH (08:51)
[2023-03-31] MEDS: Multivitamin W/ Minerals 1 TAB PO SCH (08:51)
[2023-03-31] MEDS: Chlorhexidine Gluconate 15 ML UDCUP SSP SCH ×2 (08:51→20:50)
[2023-03-31] MEDS: Atorvastatin Calcium 10 MG TAB PO SCH (08:51)
[2023-03-31] MEDS: Insulin Glargine 30 UNITS/0.3 ML VIAL SC SCH (08:55)
[2023-03-31] MEDS: AMBISOME IVPB SCH (16:53)
[2023-03-31] MEDS: [UNRECOGNIZED DRUG - OTHER] IVPB SCH (16:53)
[2023-03-31] MEDS: STERILE WATER IVPB SCH (16:53)
[2023-03-31] MEDS: Admixture Fee 1 EACH in Dextrose 5% in Water 10 ML FS SCH ×2 (16:53→19:59)
[2023-03-31] MEDS: DEXTROSE IVPB SCH (16:53)
[2023-03-31] MEDS: ADMIXTURE FEE IVPB SCH (16:53)
[2023-04-01] MEDS: Sodium Chloride 0.9% 1,000 ML IV SCH ×2 (05:14→21:16)
[2023-04-01] MEDS: Meropenem 1 GM in Sodium Chloride 0.9% 100 ML IVPB SCH ×3 (05:14→22:22)
[2023-04-01 05:28] LABS: #Eosinphils 0.4 thou/uL (0.0-0.7); #Monocytes 0.9 thou/uL (0.11-0.59); #Neutrophils 3.8 thou/uL (1.40-6.50); %Basophils 0.4 % (0.0-1.0); %Lymphocytes 28.7 % (21.0-51.0); %Monocytes 12.3 % (0.0-10.0); %Neutrophils 53.3 % (42.0-75.0); Hematocrit 25.4 % (42.0-52.0); Mean Corpuscular HGB CONC 35.4 g/dL (32.0-36.0); Mean Corpuscular Hemoglobin 34.2 pg (27.0-31.0); Mean Corpuscular Volume 96.6 fl (78.0-98.0); Mean Platelet Volume 10.1 fL (7.4-10.4); Platelet Count 201 10x3/uL (130-400); RBC Distribution Width 12.5 % (11.5-14.5); Red Blood Cell (RBC) Count 2.63 mill/uL (4.70-6.10); White Blood Cell (WBC) Count 7.2 10x3/uL (4.8-10.8)
[2023-04-01 05:54] LABS: Anion Gap 11 mmol/L (10-20); BUN (Urea Nitrogen) 29 mg/dL (8.4-25.7); Calc. Creatinine Clearance 79 mL/min (70-130); Calcium 8.8 mg/dL (7.8-10.44); Carbon Dioxide 26 mmol/L (23-31); Chloride 106 mmol/L (98-107); Cholesterol 173 mg/dl (< 200 Desired); Estimated GFR 66; Glucose 145 mg/dL (80-115); HDL Cholesterol 29 mg/dL (>60 Neg Risk); LDL Cholesterol, Calculated 120 mg/dL; Magnesium 1.9 mg/dL (1.6-2.6); Potassium 3.7 mmol/L (3.5-5.1); Sodium 139 mmol/L (136-145); Triglycerides 122 mg/dL (Less than 150)
[2023-04-01] MEDS ORDERED: Magnesium 2 GM/50 ML(in water) 2 GM in Premix 1 BAG IVPB SCH (08:00)
[2023-04-01] MEDS: Chlorhexidine Gluconate 15 ML UDCUP SSP SCH ×2 (09:13→21:21)
[2023-04-01] MEDS: Aspirin 81 mg Enteric Coated Tablet PO SCH (09:13)
[2023-04-01] MEDS: Atorvastatin Calcium 10 MG TAB PO SCH (09:13)
[2023-04-01] MEDS: Multivitamin W/ Minerals 1 TAB PO SCH (09:14)
[2023-04-01] MEDS: Nicotine 14 MG PATCH TD SCH (09:14)
[2023-04-01] MEDS: Insulin Glargine 30 UNITS/0.3 ML VIAL SC SCH (09:14)
[2023-04-01] MEDS: AMBISOME IVPB SCH (17:58)
[2023-04-01] MEDS: ADMIXTURE FEE IVPB SCH (17:58)
[2023-04-01] MEDS: [UNRECOGNIZED DRUG - OTHER] IVPB SCH (17:58)
[2023-04-01] MEDS: DEXTROSE IVPB SCH (17:58)
[2023-04-01] MEDS: STERILE WATER IVPB SCH (17:58)
[2023-04-01] MEDS: Admixture Fee 1 EACH in Dextrose 5% in Water 10 ML FS SCH ×2 (17:59→21:07)
[2023-04-02 06:22] LABS: #Eosinphils 0.2 thou/uL (0.0-0.7); #Monocytes 1.2 thou/uL (0.11-0.59); #Neutrophils 4.1 thou/uL (1.40-6.50); %Basophils 0.4 % (0.0-1.0); %Eosinophils 3.2 % (0.0-10.0); %Lymphocytes 25.1 % (21.0-51.0); %Monocytes 16.3 % (0.0-10.0); %Neutrophils 54.7 % (42.0-75.0); Hemoglobin 8.6 g/dL (14.0-18.0); Mean Corpuscular HGB CONC 35.8 g/dL (32.0-36.0); Mean Corpuscular Hemoglobin 34.1 pg (27.0-31.0); Mean Corpuscular Volume 95.2 fl (78.0-98.0); Platelet Count 195 10x3/uL (130-400); RBC Distribution Width 12.3 % (11.5-14.5); Red Blood Cell (RBC) Count 2.52 mill/uL (4.70-6.10); White Blood Cell (WBC) Count 7.5 10x3/uL (4.8-10.8)
[2023-04-02] MEDS: Meropenem 1 GM in Sodium Chloride 0.9% 100 ML IVPB SCH ×3 (06:24→22:20)
[2023-04-02 06:44] LABS: Anion Gap 11 mmol/L (10-20); BUN (Urea Nitrogen) 28 mg/dL (8.4-25.7); Calc. Creatinine Clearance 85 mL/min (70-130); Calcium 8.4 mg/dL (7.8-10.44); Carbon Dioxide 27 mmol/L (23-31); Chloride 106 mmol/L (98-107); Estimated GFR 72; Glucose 162 mg/dL (80-115); Magnesium 1.6 mg/dL (1.6-2.6); Potassium 3.5 mmol/L (3.5-5.1); Sodium 140 mmol/L (136-145)
[2023-04-02] MEDS ORDERED: Potassium Chloride 20 MEQ TAB PO SCH (08:00)
[2023-04-02] MEDS ORDERED: Magnesium 2 GM/50 ML(in water) 2 GM in Premix 1 BAG IVPB SCH (08:00)
[2023-04-02] MEDS: Multivitamin W/ Minerals 1 TAB PO SCH (10:01)
[2023-04-02] MEDS: Aspirin 81 mg Enteric Coated Tablet PO SCH (10:01)
[2023-04-02] MEDS: Atorvastatin Calcium 10 MG TAB PO SCH (10:02)
[2023-04-02] MEDS: Insulin Glargine 30 UNITS/0.3 ML VIAL SC SCH (10:02)
[2023-04-02] MEDS: HumaLOG 300 UNITS/3 ML VIAL SC PRN (10:02)
[2023-04-02] MEDS: Nicotine 14 MG PATCH TD SCH (10:02)
[2023-04-02] MEDS: Chlorhexidine Gluconate 15 ML UDCUP SSP SCH ×2 (10:02→19:53)
[2023-04-02] MEDS: Admixture Fee 1 EACH in Dextrose 5% in Water 10 ML FS SCH ×2 (17:31→19:53)
[2023-04-02] MEDS: AMBISOME IVPB SCH (17:32)
[2023-04-02] MEDS: DEXTROSE IVPB SCH (17:32)
[2023-04-02] MEDS: STERILE WATER IVPB SCH (17:32)
[2023-04-02] MEDS: ADMIXTURE FEE IVPB SCH (17:32)
[2023-04-02] MEDS: [UNRECOGNIZED DRUG - OTHER] IVPB SCH (17:32)
[2023-04-03] MEDS: Meropenem 1 GM in Sodium Chloride 0.9% 100 ML IVPB SCH ×3 (06:14→22:01)
[2023-04-03 06:28] LABS: Hematocrit 23.7 % (42.0-52.0); Hemoglobin 8.2 g/dL (14.0-18.0); Manual Diff?? YES; Mean Corpuscular HGB CONC 34.6 g/dL (32.0-36.0); Mean Corpuscular Hemoglobin 33.6 pg (27.0-31.0); Mean Corpuscular Volume 97.1 fl (78.0-98.0); Mean Platelet Volume 9.9 fL (7.4-10.4); Platelet Count 232 10x3/uL (130-400); RBC Distribution Width 12.4 % (11.5-14.5); Red Blood Cell (RBC) Count 2.44 mill/uL (4.70-6.10); White Blood Cell (WBC) Count 6.6 10x3/uL (4.8-10.8)
[2023-04-03 06:38] LABS: Delete Auto Diff?? YES
[2023-04-03 06:51] LABS: Anion Gap 12 mmol/L (10-20); BUN (Urea Nitrogen) 26 mg/dL (8.4-25.7); Calc. Creatinine Clearance 87 mL/min (70-130); Calcium 8.8 mg/dL (7.8-10.44); Carbon Dioxide 25 mmol/L (23-31); Chloride 104 mmol/L (98-107); Estimated GFR 75; Glucose 111 mg/dL (80-115); Magnesium 1.7 mg/dL (1.6-2.6); Potassium 3.4 mmol/L (3.5-5.1); Sodium 138 mmol/L (136-145)
[2023-04-03] MEDS ORDERED: Magnesium 2 GM/50 ML(in water) 2 GM in Premix 1 BAG IVPB SCH (07:30)
[2023-04-03 07:47] LABS: Anisocytosis SLIGHT = 6-15 cells HPF (0-5); Band 3 % (5-11); CellaVision Operator ID LAB.CMB; Eosinophils 3 % (0-10); Lymphocytes 27 % (21-51); Macrocytosis SLIGHT = 6-15 cells HPF (0-5); Monocytes 8 % (0-10); Neutrophil 59 % (42-75); Platelet Adequacy Comment Platelets Normal; Polychromasia SLIGHT = 2-3 cells HPF (0-2); Total Cell Count 102
[2023-04-03] MEDS ORDERED: Potassium Chloride 20 MEQ TAB PO SCH (08:00)
[2023-04-03] MEDS: Nicotine 14 MG PATCH TD SCH (09:13)
[2023-04-03] MEDS: Aspirin 81 mg Enteric Coated Tablet PO SCH (09:13)
[2023-04-03] MEDS: Atorvastatin Calcium 10 MG TAB PO SCH (09:13)
[2023-04-03] MEDS: Chlorhexidine Gluconate 15 ML UDCUP SSP SCH ×2 (09:13→22:01)
[2023-04-03] MEDS: Insulin Glargine 30 UNITS/0.3 ML VIAL SC SCH (09:13)
[2023-04-03] MEDS: Multivitamin W/ Minerals 1 TAB PO SCH (09:13)
[2023-04-03] MEDS: DEXTROSE IVPB SCH (16:34)
[2023-04-03] MEDS: ADMIXTURE FEE IVPB SCH (16:34)
[2023-04-03] MEDS: Admixture Fee 1 EACH in Dextrose 5% in Water 10 ML FS SCH ×2 (16:34→19:12)
[2023-04-03] MEDS: STERILE WATER IVPB SCH (16:34)
[2023-04-03] MEDS: [UNRECOGNIZED DRUG - OTHER] IVPB SCH (16:34)
[2023-04-03] MEDS: AMBISOME IVPB SCH (16:34)
[2023-04-03] MEDS: metFORMIN 500 MG TAB PO SCH (16:37)
[2023-04-03] MEDS: Melatonin 3 MG TAB PO PRN (22:05)
[2023-04-03] MEDS: Acetaminophen 500 MG TAB PO PRN (22:05)
[2023-04-04] MEDS: Meropenem 1 GM in Sodium Chloride 0.9% 100 ML IVPB SCH ×3 (06:01→21:12)
[2023-04-04 06:22] LABS: Hematocrit 23.6 % (42.0-52.0); Hemoglobin 8.4 g/dL (14.0-18.0); Manual Diff?? YES; Mean Corpuscular HGB CONC 35.6 g/dL (32.0-36.0); Mean Corpuscular Hemoglobin 34.3 pg (27.0-31.0); Mean Corpuscular Volume 96.3 fl (78.0-98.0); Platelet Count 207 10x3/uL (130-400); RBC Distribution Width 12.3 % (11.5-14.5); Red Blood Cell (RBC) Count 2.45 mill/uL (4.70-6.10)
[2023-04-04 06:33] LABS: Delete Auto Diff?? YES
[2023-04-04 06:57] LABS: Anion Gap 11 mmol/L (10-20); BUN (Urea Nitrogen) 28 mg/dL (8.4-25.7); Calc. Creatinine Clearance 81 mL/min (70-130); Calcium 8.5 mg/dL (7.8-10.44); Carbon Dioxide 27 mmol/L (23-31); Chloride 107 mmol/L (98-107); Estimated GFR 68; Glucose 97 mg/dL (80-115); Magnesium 1.8 mg/dL (1.6-2.6); Phosphorus 4.4 mg/dL (2.3-4.7); Potassium 3.5 mmol/L (3.5-5.1); Sodium 141 mmol/L (136-145)
[2023-04-04 07:03] LABS: CellaVision Operator ID lab.abc; Eosinophils 10 % (0-10); Lymphocytes 33 % (21-51); Monocytes 14 % (0-10); Neutrophil 44 % (42-75); Platelet Adequacy Comment Platelets Normal; RBC Morphology Within Normal Limits; Smudge Cells 9.9 %; Total Cell Count 101
[2023-04-04] MEDS ORDERED: Electrolyte Replacement Protocol FS PRN (07:45)
[2023-04-04] MEDS ORDERED: Potassium Chloride 20 MEQ TAB PO SCH (07:45)
[2023-04-04] MEDS ORDERED: Magnesium 2 GM/50 ML(in water) 2 GM in Premix 1 BAG IVPB SCH (07:45)
[2023-04-04] MEDS: Multivitamin W/ Minerals 1 TAB PO SCH (08:28)
[2023-04-04] MEDS: Atorvastatin Calcium 10 MG TAB PO SCH (08:28)
[2023-04-04] MEDS: Chlorhexidine Gluconate 15 ML UDCUP SSP SCH ×2 (08:28→21:12)
[2023-04-04] MEDS: Nicotine 14 MG PATCH TD SCH (08:28)
[2023-04-04] MEDS: metFORMIN 500 MG TAB PO SCH ×2 (08:28→18:30)
[2023-04-04] MEDS: Aspirin 81 mg Enteric Coated Tablet PO SCH (08:28)
[2023-04-04] MEDS: Insulin Glargine 30 UNITS/0.3 ML VIAL SC SCH (08:28)
[2023-04-04 15:46] LABS: Potassium 3.7 mmol/L (3.5-5.1)
[2023-04-04] MEDS: DEXTROSE IVPB SCH (18:29)
[2023-04-04] MEDS: STERILE WATER IVPB SCH (18:29)
[2023-04-04] MEDS: AMBISOME IVPB SCH (18:29)
[2023-04-04] MEDS: ADMIXTURE FEE IVPB SCH (18:29)
[2023-04-04] MEDS: [UNRECOGNIZED DRUG - OTHER] IVPB SCH (18:29)
[2023-04-04] MEDS: Admixture Fee 1 EACH in Dextrose 5% in Water 10 ML FS SCH ×2 (18:30→21:12)
[2023-04-04] MEDS: Acetaminophen 500 MG TAB PO PRN (22:47)
[2023-04-04] MEDS: Melatonin 3 MG TAB PO PRN (22:47)
[2023-04-05] MEDS: Meropenem 1 GM in Sodium Chloride 0.9% 100 ML IVPB SCH ×3 (05:26→20:24)
[2023-04-05 05:45] LABS: Hematocrit 23.6 % (42.0-52.0); Hemoglobin 8.2 g/dL (14.0-18.0); Manual Diff?? YES; Mean Corpuscular HGB CONC 34.7 g/dL (32.0-36.0); Mean Corpuscular Hemoglobin 33.7 pg (27.0-31.0); Mean Corpuscular Volume 97.1 fl (78.0-98.0); Mean Platelet Volume 10.1 fL (7.4-10.4); Platelet Count 214 10x3/uL (130-400); RBC Distribution Width 12.2 % (11.5-14.5); Red Blood Cell (RBC) Count 2.43 mill/uL (4.70-6.10); White Blood Cell (WBC) Count 4.8 10x3/uL (4.8-10.8)
[2023-04-05 05:55] LABS: Delete Auto Diff?? YES
[2023-04-05 06:07] LABS: Phosphorus 4.1 mg/dL (2.3-4.7)
[2023-04-05 06:10] LABS: Anion Gap 14 mmol/L (10-20); BUN (Urea Nitrogen) 30 mg/dL (8.4-25.7); Calc. Creatinine Clearance 78 mL/min (70-130); Calcium 8.6 mg/dL (7.8-10.44); Carbon Dioxide 26 mmol/L (23-31); Chloride 105 mmol/L (98-107); Estimated GFR 65; Glucose 102 mg/dL (80-115); Magnesium 2.3 mg/dL (1.6-2.6); Potassium 3.7 mmol/L (3.5-5.1); Sodium 141 mmol/L (136-145)
[2023-04-05 06:30] LABS: Anisocytosis SLIGHT = 6-15 cells HPF (0-5); Band 1 % (5-11); CellaVision Operator ID LAB.JMM; Eosinophils 13 % (0-10); Lymphocytes 28 % (21-51); Macrocytosis SLIGHT = 6-15 cells HPF (0-5); Monocytes 11 % (0-10); Neutrophil 45 % (42-75); Platelet Adequacy Comment Platelets Normal; Polychromasia SLIGHT = 2-3 cells HPF (0-2); Smudge Cells 10.9 %; Total Cell Count 101
[2023-04-05] MEDS: Chlorhexidine Gluconate 15 ML UDCUP SSP SCH ×2 (08:07→20:24)
[2023-04-05] MEDS: Nicotine 14 MG PATCH TD SCH (08:07)
[2023-04-05] MEDS: metFORMIN 500 MG TAB PO SCH ×2 (08:07→17:04)
[2023-04-05] MEDS: Insulin Glargine 30 UNITS/0.3 ML VIAL SC SCH (08:08)
[2023-04-05] MEDS: Multivitamin W/ Minerals 1 TAB PO SCH (08:08)
[2023-04-05] MEDS: Aspirin 81 mg Enteric Coated Tablet PO SCH (08:08)
[2023-04-05] MEDS: Atorvastatin Calcium 10 MG TAB PO SCH (08:11)
[2023-04-05] MEDS: Admixture Fee 1 EACH in Dextrose 5% in Water 10 ML FS SCH ×2 (16:54→19:50)
[2023-04-05] MEDS: STERILE WATER IVPB SCH (16:55)
[2023-04-05] MEDS: [UNRECOGNIZED DRUG - OTHER] IVPB SCH (16:55)
[2023-04-05] MEDS: DEXTROSE IVPB SCH (16:55)
[2023-04-05] MEDS: AMBISOME IVPB SCH (16:55)
[2023-04-05] MEDS: ADMIXTURE FEE IVPB SCH (16:55)
[2023-04-05] MEDS: Melatonin 3 MG TAB PO PRN (20:31)
[2023-04-05] MEDS: Acetaminophen 500 MG TAB PO PRN (20:31)
[2023-04-06] MEDS: Meropenem 1 GM in Sodium Chloride 0.9% 100 ML IVPB SCH ×3 (05:26→21:17)
[2023-04-06 05:42] LABS: Hematocrit 23.9 % (42.0-52.0); Hemoglobin 8.4 g/dL (14.0-18.0); Manual Diff?? YES; Mean Corpuscular HGB CONC 35.1 g/dL (32.0-36.0); Mean Corpuscular Hemoglobin 34.1 pg (27.0-31.0); Mean Corpuscular Volume 97.2 fl (78.0-98.0); Mean Platelet Volume 9.7 fL (7.4-10.4); Platelet Count 228 10x3/uL (130-400); RBC Distribution Width 12.1 % (11.5-14.5); Red Blood Cell (RBC) Count 2.46 mill/uL (4.70-6.10); White Blood Cell (WBC) Count 4.5 10x3/uL (4.8-10.8)
[2023-04-06 06:10] LABS: Delete Auto Diff?? YES
[2023-04-06 06:15] LABS: Anion Gap 12 mmol/L (10-20); BUN (Urea Nitrogen) 29 mg/dL (8.4-25.7); Calc. Creatinine Clearance 79 mL/min (70-130); Calcium 8.7 mg/dL (7.8-10.44); Carbon Dioxide 27 mmol/L (23-31); Chloride 105 mmol/L (98-107); Estimated GFR 66; Glucose 84 mg/dL (80-115); Potassium 3.7 mmol/L (3.5-5.1); Sodium 140 mmol/L (136-145)
[2023-04-06 06:33] LABS: Band 1 % (5-11); CellaVision Operator ID lab.abc; Eosinophils 4 % (0-10); Lymphocytes 27 % (21-51); Monocytes 7 % (0-10); Neutrophil 60 % (42-75); Platelet Adequacy Comment Platelets Normal; RBC Morphology Within Normal Limits; Reactive Lymphocytes 1 % (0-10); Smudge Cells 5.9 %; Total Cell Count 101
[2023-04-06] MEDS: Aspirin 81 mg Enteric Coated Tablet PO SCH (08:31)
[2023-04-06] MEDS: metFORMIN 500 MG TAB PO SCH ×2 (08:31→16:21)
[2023-04-06] MEDS: Multivitamin W/ Minerals 1 TAB PO SCH (08:31)
[2023-04-06] MEDS: Chlorhexidine Gluconate 15 ML UDCUP SSP SCH ×2 (08:31→21:17)
[2023-04-06] MEDS: Atorvastatin Calcium 10 MG TAB PO SCH (08:32)
[2023-04-06] MEDS: Nicotine 14 MG PATCH TD SCH (08:32)
[2023-04-06] MEDS: Insulin Glargine 30 UNITS/0.3 ML VIAL SC SCH (08:32)
[2023-04-06] MEDS: Magnesium Oxide 400 MG TAB PO SCH (13:13)
[2023-04-06] MEDS: Admixture Fee 1 EACH in Dextrose 5% in Water 10 ML FS SCH ×2 (17:12→19:33)
[2023-04-06] MEDS: STERILE WATER IVPB SCH (17:13)
[2023-04-06] MEDS: AMBISOME IVPB SCH (17:13)
[2023-04-06] MEDS: ADMIXTURE FEE IVPB SCH (17:13)
[2023-04-06] MEDS: DEXTROSE IVPB SCH (17:13)
[2023-04-06] MEDS: [UNRECOGNIZED DRUG - OTHER] IVPB SCH (17:13)
[2023-04-06] MEDS: Melatonin 3 MG TAB PO PRN (21:28)
[2023-04-06] MEDS: Acetaminophen 500 MG TAB PO PRN (21:28)
[2023-04-07] MEDS: Meropenem 1 GM in Sodium Chloride 0.9% 100 ML IVPB SCH ×3 (05:42→21:09)
[2023-04-07] MEDS: ISAVUCONAZONIUM SULFATE 186 MG PO SCH ×3 (05:43→21:19)
[2023-04-07 05:59] LABS: #Eosinphils 0.2 thou/uL (0.0-0.7); #Monocytes 0.7 thou/uL (0.11-0.59); #Neutrophils 2.4 thou/uL (1.40-6.50); %Basophils 0.6 % (0.0-1.0); %Eosinophils 4.8 % (0.0-10.0); %Monocytes 13.1 % (0.0-10.0); %Neutrophils 48.1 % (42.0-75.0); Hematocrit 25.3 % (42.0-52.0); Hemoglobin 8.9 g/dL (14.0-18.0); Mean Corpuscular HGB CONC 35.2 g/dL (32.0-36.0); Mean Corpuscular Hemoglobin 33.6 pg (27.0-31.0); Mean Corpuscular Volume 95.5 fl (78.0-98.0); Mean Platelet Volume 9.7 fL (7.4-10.4); Platelet Count 260 10x3/uL (130-400); RBC Distribution Width 12.2 % (11.5-14.5); Red Blood Cell (RBC) Count 2.65 mill/uL (4.70-6.10)
[2023-04-07 06:13] LABS: Fungus Culture Final report (.); Fungus Stain Final report (.)
[2023-04-07 06:19] LABS: Anion Gap 12 mmol/L (10-20); BUN (Urea Nitrogen) 28 mg/dL (8.4-25.7); Calc. Creatinine Clearance 80 mL/min (70-130); Calcium 9.1 mg/dL (7.8-10.44); Carbon Dioxide 27 mmol/L (23-31); Chloride 104 mmol/L (98-107); Estimated GFR 67; Glucose 118 mg/dL (80-115); Potassium 3.4 mmol/L (3.5-5.1); Sodium 140 mmol/L (136-145)
[2023-04-07] MEDS: Multivitamin W/ Minerals 1 TAB PO SCH (08:08)
[2023-04-07] MEDS: Chlorhexidine Gluconate 15 ML UDCUP SSP SCH ×2 (08:08→21:07)
[2023-04-07] MEDS: Insulin Glargine 30 UNITS/0.3 ML VIAL SC SCH (08:08)
[2023-04-07] MEDS: Aspirin 81 mg Enteric Coated Tablet PO SCH (08:08)
[2023-04-07] MEDS: Nicotine 14 MG PATCH TD SCH (08:09)
[2023-04-07] MEDS: metFORMIN 500 MG TAB PO SCH ×2 (08:09→17:35)
[2023-04-07] MEDS: Atorvastatin Calcium 10 MG TAB PO SCH (08:09)
[2023-04-07] MEDS: Magnesium Oxide 400 MG TAB PO SCH (13:45)
[2023-04-07 14:38] LABS: Fungus Culture Final report (.); Fungus Stain Final report (.)
[2023-04-07] MEDS: Acetaminophen 500 MG TAB PO PRN (21:07)
[2023-04-07] MEDS: Melatonin 3 MG TAB PO PRN (21:07)
[2023-04-08] MEDS: Meropenem 1 GM in Sodium Chloride 0.9% 100 ML IVPB SCH ×3 (05:48→21:37)
[2023-04-08] MEDS: ISAVUCONAZONIUM SULFATE 186 MG PO SCH ×3 (05:48→21:32)
[2023-04-08 06:17] LABS: Hematocrit 24.8 % (42.0-52.0); Hemoglobin 8.7 g/dL (14.0-18.0); Manual Diff?? YES; Mean Corpuscular HGB CONC 35.1 g/dL (32.0-36.0); Mean Corpuscular Hemoglobin 33.9 pg (27.0-31.0); Mean Corpuscular Volume 96.5 fl (78.0-98.0); Mean Platelet Volume 9.6 fL (7.4-10.4); Platelet Count 280 10x3/uL (130-400); Red Blood Cell (RBC) Count 2.57 mill/uL (4.70-6.10)
[2023-04-08 06:35] LABS: Delete Auto Diff?? YES
[2023-04-08 07:01] LABS: CellaVision Operator ID lab.abc; Eosinophils 8 % (0-10); Lymphocytes 26 % (21-51); Monocytes 8 % (0-10); Neutrophil 56 % (42-75); Platelet Adequacy Comment Platelets Normal; RBC Morphology Within Normal Limits; Smudge Cells 26.7 %; Total Cell Count 101
[2023-04-08 07:11] LABS: Anion Gap 15 mmol/L (10-20); BUN (Urea Nitrogen) 29 mg/dL (8.4-25.7); Calc. Creatinine Clearance 70 mL/min (70-130); Carbon Dioxide 27 mmol/L (23-31); Chloride 102 mmol/L (98-107); Estimated GFR 57; Glucose 79 mg/dL (80-115); Potassium 3.5 mmol/L (3.5-5.1); Sodium 140 mmol/L (136-145)
[2023-04-08] MEDS: Nicotine 14 MG PATCH TD SCH (09:12)
[2023-04-08] MEDS: Aspirin 81 mg Enteric Coated Tablet PO SCH (09:12)
[2023-04-08] MEDS: Multivitamin W/ Minerals 1 TAB PO SCH (09:12)
[2023-04-08] MEDS: metFORMIN 500 MG TAB PO SCH ×2 (09:13→17:31)
[2023-04-08] MEDS: Chlorhexidine Gluconate 15 ML UDCUP SSP SCH ×2 (09:13→21:32)
[2023-04-08] MEDS: Atorvastatin Calcium 10 MG TAB PO SCH (09:13)
[2023-04-08] MEDS: Insulin Glargine 30 UNITS/0.3 ML VIAL SC SCH (09:13)
[2023-04-08 12:05] LABS: Hemoglobin A1c 7.4 % (4.0-6.0)
[2023-04-08] MEDS: Magnesium Oxide 400 MG TAB PO SCH (13:12)
[2023-04-09] MEDS: Melatonin 3 MG TAB PO PRN ×2 (00:33→22:13)
[2023-04-09] MEDS: Meropenem 1 GM in Sodium Chloride 0.9% 100 ML IVPB SCH ×3 (05:50→22:13)
[2023-04-09 06:02] LABS: #Eosinphils 0.3 thou/uL (0.0-0.7); #Monocytes 0.7 thou/uL (0.11-0.59); #Neutrophils 2.1 thou/uL (1.40-6.50); %Basophils 0.4 % (0.0-1.0); %Eosinophils 6.3 % (0.0-10.0); %Lymphocytes 35.6 % (21.0-51.0); %Monocytes 14.2 % (0.0-10.0); %Neutrophils 43.1 % (42.0-75.0); Hematocrit 25.8 % (42.0-52.0); Mean Corpuscular HGB CONC 34.9 g/dL (32.0-36.0); Mean Corpuscular Hemoglobin 33.7 pg (27.0-31.0); Mean Corpuscular Volume 96.6 fl (78.0-98.0); Mean Platelet Volume 9.6 fL (7.4-10.4); Platelet Count 293 10x3/uL (130-400); RBC Distribution Width 12.2 % (11.5-14.5); Red Blood Cell (RBC) Count 2.67 mill/uL (4.70-6.10); White Blood Cell (WBC) Count 4.8 10x3/uL (4.8-10.8)
[2023-04-09 06:24] LABS: Anion Gap 15 mmol/L (10-20); BUN (Urea Nitrogen) 25 mg/dL (8.4-25.7); Calc. Creatinine Clearance 71 mL/min (70-130); Calcium 8.7 mg/dL (7.8-10.44); Carbon Dioxide 26 mmol/L (23-31); Chloride 103 mmol/L (98-107); Estimated GFR 58; Glucose 109 mg/dL (80-115); Potassium 3.5 mmol/L (3.5-5.1); Sodium 140 mmol/L (136-145)
[2023-04-09] MEDS: Nicotine 14 MG PATCH TD SCH ×2 (08:47→08:51)
[2023-04-09] MEDS: metFORMIN 500 MG TAB PO SCH ×2 (08:47→18:24)
[2023-04-09] MEDS: Atorvastatin Calcium 10 MG TAB PO SCH (08:47)
[2023-04-09] MEDS: Aspirin 81 mg Enteric Coated Tablet PO SCH (08:47)
[2023-04-09] MEDS: Multivitamin W/ Minerals 1 TAB PO SCH (08:47)
[2023-04-09] MEDS: Chlorhexidine Gluconate 15 ML UDCUP SSP SCH ×2 (08:47→22:13)
[2023-04-09] MEDS: Magnesium Oxide 400 MG TAB PO SCH (13:17)
[2023-04-09] MEDS: ISAVUCONAZONIUM SULFATE 186 MG PO SCH (22:13)
[2023-04-10] MEDS: Meropenem 1 GM in Sodium Chloride 0.9% 100 ML IVPB SCH ×3 (05:03→21:20)
[2023-04-10 05:18] LABS: #Eosinphils 0.3 thou/uL (0.0-0.7); #Monocytes 0.7 thou/uL (0.11-0.59); %Basophils 0.6 % (0.0-1.0); %Eosinophils 6.4 % (0.0-10.0); %Lymphocytes 36.2 % (21.0-51.0); %Monocytes 14.5 % (0.0-10.0); %Neutrophils 42.1 % (42.0-75.0); Hematocrit 25.9 % (42.0-52.0); Hemoglobin 8.9 g/dL (14.0-18.0); Mean Corpuscular HGB CONC 34.4 g/dL (32.0-36.0); Mean Corpuscular Hemoglobin 33.2 pg (27.0-31.0); Mean Corpuscular Volume 96.6 fl (78.0-98.0); Mean Platelet Volume 9.4 fL (7.4-10.4); Platelet Count 288 10x3/uL (130-400); RBC Distribution Width 12.1 % (11.5-14.5); Red Blood Cell (RBC) Count 2.68 mill/uL (4.70-6.10); White Blood Cell (WBC) Count 4.8 10x3/uL (4.8-10.8)
[2023-04-10 05:56] LABS: Anion Gap 15 mmol/L (10-20); BUN (Urea Nitrogen) 25 mg/dL (8.4-25.7); Calc. Creatinine Clearance 69 mL/min (70-130); Calcium 8.9 mg/dL (7.8-10.44); Carbon Dioxide 26 mmol/L (23-31); Chloride 103 mmol/L (98-107); Estimated GFR 57; Glucose 95 mg/dL (80-115); Potassium 3.6 mmol/L (3.5-5.1); Sodium 140 mmol/L (136-145)
[2023-04-10] MEDS: Chlorhexidine Gluconate 15 ML UDCUP SSP SCH ×2 (07:57→21:19)
[2023-04-10] MEDS: metFORMIN 500 MG TAB PO SCH ×2 (07:57→18:11)
[2023-04-10] MEDS: Aspirin 81 mg Enteric Coated Tablet PO SCH (07:57)
[2023-04-10] MEDS: Atorvastatin Calcium 10 MG TAB PO SCH (07:57)
[2023-04-10] MEDS: Nicotine 14 MG PATCH TD SCH (07:58)
[2023-04-10] MEDS: Multivitamin W/ Minerals 1 TAB PO SCH (07:59)
[2023-04-10] MEDS: Magnesium Oxide 400 MG TAB PO SCH (15:09)
[2023-04-10] MEDS: ISAVUCONAZONIUM SULFATE 186 MG PO SCH (21:19)
[2023-04-10] MEDS: Melatonin 3 MG TAB PO PRN (21:19)
[2023-04-11] MEDS: Meropenem 1 GM in Sodium Chloride 0.9% 100 ML IVPB SCH ×3 (05:38→20:59)
[2023-04-11] MEDS: metFORMIN 500 MG TAB PO SCH ×2 (08:37→18:31)
[2023-04-11] MEDS: Chlorhexidine Gluconate 15 ML UDCUP SSP SCH ×2 (08:37→20:57)
[2023-04-11] MEDS: Atorvastatin Calcium 10 MG TAB PO SCH (08:37)
[2023-04-11] MEDS: Aspirin 81 mg Enteric Coated Tablet PO SCH (08:37)
[2023-04-11] MEDS: Multivitamin W/ Minerals 1 TAB PO SCH (08:37)
[2023-04-11] MEDS: Nicotine 14 MG PATCH TD SCH (08:38)
[2023-04-11] MEDS: Magnesium Oxide 400 MG TAB PO SCH (13:48)
[2023-04-11] MEDS: Acetaminophen 500 MG TAB PO PRN (20:58)
[2023-04-11] MEDS: Melatonin 3 MG TAB PO PRN (20:58)
[2023-04-11] MEDS: ISAVUCONAZONIUM SULFATE 186 MG PO SCH (20:58)
[2023-04-12] MEDS: Meropenem 1 GM in Sodium Chloride 0.9% 100 ML IVPB SCH ×2 (05:20→13:11)
[2023-04-12 05:40] LABS: #Eosinphils 0.3 thou/uL (0.0-0.7); #Monocytes 0.8 thou/uL (0.11-0.59); #Neutrophils 1.9 thou/uL (1.40-6.50); %Basophils 0.6 % (0.0-1.0); %Eosinophils 5.3 % (0.0-10.0); %Lymphocytes 39.5 % (21.0-51.0); %Monocytes 15.8 % (0.0-10.0); %Neutrophils 38.4 % (42.0-75.0); Hematocrit 26.5 % (42.0-52.0); Hemoglobin 9.3 g/dL (14.0-18.0); Mean Corpuscular HGB CONC 35.1 g/dL (32.0-36.0); Mean Corpuscular Hemoglobin 33.9 pg (27.0-31.0); Mean Corpuscular Volume 96.7 fl (78.0-98.0); Mean Platelet Volume 9.3 fL (7.4-10.4); Platelet Count 302 10x3/uL (130-400); RBC Distribution Width 11.9 % (11.5-14.5); Red Blood Cell (RBC) Count 2.74 mill/uL (4.70-6.10); White Blood Cell (WBC) Count 4.9 10x3/uL (4.8-10.8)
[2023-04-12 06:10] LABS: ALT (SGPT) 15 U/L (8-55); AST (SGOT) 21 U/L (5-34); Albumin 3.3 g/dL (3.4-4.8); Alkaline Phosphatase 105 U/L (40-110); Anion Gap 12 mmol/L (10-20); BUN (Urea Nitrogen) 24 mg/dL (8.4-25.7); Bilirubin, Total 0.5 mg/dL (0.2-1.2); Calc. Creatinine Clearance 66 mL/min (70-130); Calcium 8.8 mg/dL (7.8-10.44); Carbon Dioxide 28 mmol/L (23-31); Chloride 102 mmol/L (98-107); Estimated GFR 53; Globulin 3.2 g/dL (2.4-3.5); Glucose 171 mg/dL (80-115); Potassium 3.8 mmol/L (3.5-5.1); Protein, Total 6.5 g/dL (5.8-8.1); Sodium 138 mmol/L (136-145)
[2023-04-12] MEDS: Multivitamin W/ Minerals 1 TAB PO SCH (08:42)
[2023-04-12] MEDS: Atorvastatin Calcium 10 MG TAB PO SCH (08:42)
[2023-04-12] MEDS: Chlorhexidine Gluconate 15 ML UDCUP SSP SCH (08:42)
[2023-04-12] MEDS: Aspirin 81 mg Enteric Coated Tablet PO SCH (08:42)
[2023-04-12] MEDS: metFORMIN 500 MG TAB PO SCH ×2 (08:42→16:47)
[2023-04-12] MEDS: Nicotine 14 MG PATCH TD SCH (08:50)
[2023-04-12] MEDS: Magnesium Oxide 400 MG TAB PO SCH (12:14)
[2023-04-12] MEDS ORDERED: Ertapenem 1 GM in Sodium Chloride 0.9% 100 ML IVPB SCH (16:30)
[2023-04-12] MEDS: ISAVUCONAZONIUM SULFATE 186 MG PO SCH (17:19)
[2023-04-12 17:31] VITALS: TEMP 98.5
[2023-04-12 17:34] VITALS: BP 164/77
== END 2023-04-12 17:46 | disposition home or self-care (01) | DRG 981 ==
LOC: SURG A 14:05 → SJJU 20:19 → SURG A 23:09 → SJJU 03-10 00:06 → 2NO 03-30 18:47 → T4-A 04-02 14:33
PROVIDERS: ADMIT Dentist Oral and Maxillofacial Surgery; ATTEND Internal Medicine
PROC: 0NBR0ZZ Excision of Maxilla, Open Approach (ICD-10-PCS; 2023-03-09)
PROC: 0NBR0ZX Excision of Maxilla, Open Approach, Diagnostic (ICD-10-PCS; 2023-03-09)
PROC: 0CDWXZ1 Extraction of Upper Tooth, Multiple, External Approach (ICD-10-PCS; 2023-03-09)
PROC: 02HV33Z Insertion of Infusion Device into Superior Vena Cava, Percutaneous Approach (ICD-10-PCS; principal; 2023-03-11)
PROC: B5181ZA Fluoroscopy of Superior Vena Cava using Low Osmolar Contrast, Guidance (ICD-10-PCS; 2023-03-11)
PROC: B548ZZA Ultrasonography of Superior Vena Cava, Guidance (ICD-10-PCS; 2023-03-11)
DX: E11.52 Type 2 diabetes mellitus with diabetic peripheral angiopathy with gangrene (principal); B46.1 Rhinocerebral mucormycosis; L03.818 Cellulitis of other sites; Z16.24 Resistance to multiple antibiotics; N17.9 Acute kidney failure, unspecified; E11.69 Type 2 diabetes mellitus with other specified complication; I10 Essential (primary) hypertension; E78.5 Hyperlipidemia, unspecified; M27.2 Inflammatory conditions of jaws; F17.290 Nicotine dependence, other tobacco product, uncomplicated; J32.0 Chronic maxillary sinusitis; K04.1 Necrosis of pulp; R00.1 Bradycardia, unspecified; M19.011 Primary osteoarthritis, right shoulder; D64.9 Anemia, unspecified; Z79.82 Long term (current) use of aspirin; Z79.899 Other long term (current) drug therapy; Z79.84 Long term (current) use of oral hypoglycemic drugs; Z90.49 Acquired absence of other specified parts of digestive tract; Z98.890 Other specified postprocedural states
CPT/HCPCS: 36415; 36416; 36569; 70486; 70488; 71045; 76770; 78452; 80048; 80053; 80061; 80202; 81001; 83036; 83735; 84100; 85025; 86140; 87070; 87077; 87102; 87107; 87116; 87186; 87205; 87206; 87389; 88307; 88311; 88312; 93005; 93010; 93017; A9502; C1751; J0171; J0289; J0692; J1170; J1335; J1815; J2001; J2185; J2248; J2250; J2272; J2405; J2543; J2704; J2765; J2785; J3010; J3370; J3370-JW; J3475; J3490; J7050; J7070; Q9967